=== PATIENT | female | born 1940 | race Caucasian/White ===

== ENCOUNTER 2019-01-09 13:50 | Inpatient (IN) | payer MEDICARE, MEDICAID ==
[~2019-01-09] VITALS: Ht 165.1 cm; Wt 81.6 kg
[~2019-01-09 13:50] MED LIST: ACET-73 PO; ACET325T53 PO; BISA10SU8 RC; CALC-261 PO; CRAN450T3 PO; DEXT1CAP3 PO; DOCU-141 PO; HYDR-3974 PR; LEVO100T9 PO; MAG30ORA PO; MAGN400O6 PO; NA P133E RC; TEMAZEPAM PO
--- NOTE | 2019-01-09 14:30 | NUR ---
[facility] YESTER[facility] UNWITNESSED,-KO. PATIENT A/OX1, CONFYSED, BREATHING EVEN AND UNLABORED, AMBULATES WITH STEADY GAIT. NO DISTRESS NOTED. WILL MONITOR.
[2019-01-09 14:56] LABS: BASOPHILS % (AUTO) 0.5 % (0.0-2.0); EOSINOPHILS % (AUTO) 0.6 % (0.0-6.0); HEMATOCRIT 36 % (33-45); HEMOGLOBIN 12.4 g/dL (11.5-14.8); LYMPHOCYTES # (AUTO) 0.8 /CMM (0.8-4.8); LYMPHOCYTES % (AUTO) 11.8 % (20.0-44.0); MEAN CORPUSCULAR HGB CONC 35 g/dl (31.0-36.0); MEAN CORPUSCULAR VOLUME 91 fL (82-100); MONOCYTES # (AUTO) 0.6 /CMM (0.1-1.30); NEUTROPHILS # (AUTO) 5.2 /CMM (1.8-8.9); NEUTROPHILS % (AUTO) 78.1 % (43.0-81.0); PLATELET COUNT (AUTO) 163 /CMM (150-450); RED BLOOD CELL COUNT(AUTO) 3.96 MIL/uL (4.0-5.2); WHITE BLOOD COUNT (AUTO) 6.6 K/uL (4.3-11.0)
[2019-01-09 15:05] LABS: CALCIUM, SERUM 8.2 mg/dL (8.5-10.1); CARBON DIOXIDE 24 mmol/L (21-32); CHLORIDE 106 mmol/L (98-107); CREATININE 0.7 mg/dL (0.6-1.3); GLUCOSE 196 mg/dL (74-106); POTASSIUM 3.5 mmol/L (3.5-5.1); SODIUM SERUM 142 mmol/L (136-145); UREA NITROGEN, BLOOD 27 mg/dL (7-18)
[2019-01-09 15:08] LABS: ALANINE AMINOTRANSFERASE 13 U/L (12-78); ALBUMIN 3.1 g/dL (3.4-5.0); ALKALINE PHOSPHATASE 62 U/L (46-116); ASPARTATE AMINOTRANSFERASE 7 U/L (15-37); BILIRUBIN,DIRECT 0.1 mg/dL (0.0-0.2); BILIRUBIN,TOTAL 0.5 mg/dL (0.2-1.0); TOTAL PROTEIN, SERUM 6.7 g/dL (6.4-8.2)
[2019-01-09] MEDS ORDERED: DIVA250T4 PO (15:50)
[2019-01-09] MEDS ORDERED: LORA0.5T PO (15:50)
[2019-01-09] MEDS ORDERED: ACET-2605 PO (15:50)
[2019-01-09] MEDS ORDERED: PROP20TA7 PO (15:50)
[2019-01-09] MEDS ORDERED: RISP0.253 PO (15:50)
[2019-01-09] MEDS ORDERED: BENZ0.5T43 PO (15:50)
[2019-01-09] MEDS ORDERED: SIMV10TA6 PO (15:50)
[2019-01-09] MEDS ORDERED: INSULIN REGULAR, HUMAN 100 UNIT/ML 10 ML VIAL ONE (16:17)
[2019-01-09] MEDS ORDERED: INSULIN REGULAR, HUMAN 100 UNIT/ML 10 ML VIAL SQ ONE (16:30)
--- NOTE | 2019-01-09 17:08 | NUR ---
BS RECHECKED 130. MD AWARE WITH NO NEW ORDER.
--- NOTE | 2019-01-09 17:08 | NUR ---
TRAY FOOD ORDERED, ORANGE JUICE PROVIDED. NO S/SX OF HYPOGLYCEMIA.
--- NOTE | 2019-01-09 18:19 | NUR ---
PATIENT A/OX1, VERBALLY RESPONSIVE, ATE REGULAR DINNER 100%, ORANGE JUICE GIVEN, TOLERATED WELL. PATIENT IN NO DISTRESS AT THIS TIME. REPORT GIVEN TO
--- NOTE | 2019-01-09 19:00 | NUR ---
PATIENT TRANSFERRED TO ROOM 307, IN NO DISTRESS.
--- NOTE | 2019-01-09 19:14 | NUR ---
BS IMPROVED, ENDORSED TO DAIN BONILLA TO GIVE PATIENT'S SNACKS LATER.
[2019-01-09] MEDS ORDERED: ACETAMINOPHEN 325 MG TABLET PO PRN (19:30)
[2019-01-09] MEDS ORDERED: ONDANSETRON HCL/PF 4 MG/2 ML VIAL IVP PRN (19:30)
[2019-01-09] MEDS ORDERED: IV NS 0.9% 1,000 ML IV PRN (19:30)
[2019-01-09] MEDS ORDERED: ZOLPIDEM TARTRATE 5 MG TABLET PO PRN (19:30)
[2019-01-09] MEDS ORDERED: Z GUARD REMEDY 2 OZ OINT TP PRN (19:30)
[2019-01-09] MEDS ORDERED: HYDROCODONE/APAP 5/325MG 1 EACH TABLET PO PRN (19:30)
--- NOTE | 2019-01-09 19:30 | NUR ---
RN MS OPENING/ADMISSION NOTES RECEIVED PATIENT IN BED AWAKE, ALERT AND ORIENTED X1-2, FORGETFUL. VERBALLY RESPONSIVE, ABLE TO MAKE NEEDS KNOWN. BREATHING EVEN AND UNLABORED. NO SOB NOTED. TOLERATING ROOM AIR. NO COMPLAINTS OF PAIN OR DISCOMFORT. NO FACIAL GRIMACING. IV ON LEFT HAND INTACT AND PATENT. SKIN DRY AND WARM TO TOUCH. AFEBRILE. ORIENTED TO THE USE OF UNIT AMENITIES. INSTRUCTED ON THE USE OF CALL LIGHT. SAFETY MEASURES IN PLACE. CALL LIGHT WITHIN REACH. WILL CONTINUE TO MONITOR.
[2019-01-09 20:00] VITALS: BP 123/66
[2019-01-09] MEDS: DOCUSATE SODIUM 100 MG CAPSULE PO SCH (20:09)
[2019-01-09] MEDS: DIVALPROEX SODIUM 250 MG TABLET.DR PO SCH (20:09)
[2019-01-09] MEDS: BENZTROPINE MESYLATE (1 MG) 1 MG TABLET PO SCH (20:09)
[2019-01-09] MEDS: PROPRANOLOL HCL 10 MG TABLET PO SCH (20:10)
[2019-01-09] MEDS: ENOXAPARIN SODIUM 40 MG/0.4 ML DISP.SYRIN SQ SCH (20:10)
[2019-01-09] MEDS: risperiDONE 0.25 MG TABLET PO SCH (21:41)
[2019-01-09] MEDS: SIMVASTATIN 10 MG TABLET PO SCH (21:41)
[2019-01-09] MEDS ORDERED: QUETIAPINE FUMARATE 25 MG TABLET PO SCH (23:00)
[2019-01-10] MEDS: PROPRANOLOL HCL 10 MG TABLET PO SCH ×3 (03:46→20:00)
[2019-01-10 06:44] LABS: BASOPHILS % (AUTO) 0.4 % (0.0-2.0); EOSINOPHILS % (AUTO) 1.2 % (0.0-6.0); HEMATOCRIT 35 % (33-45); LYMPHOCYTES # (AUTO) 1.2 /CMM (0.8-4.8); LYMPHOCYTES % (AUTO) 18.5 % (20.0-44.0); MEAN CORPUSCULAR HGB CONC 34 g/dl (31.0-36.0); MEAN CORPUSCULAR VOLUME 91 fL (82-100); MONOCYTES # (AUTO) 0.9 /CMM (0.1-1.30); MONOCYTES % (AUTO) 12.7 % (2.0-12.0); NEUTROPHILS # (AUTO) 4.5 /CMM (1.8-8.9); NEUTROPHILS % (AUTO) 67.2 % (43.0-81.0); PLATELET COUNT (AUTO) 142 /CMM (150-450); RED BLOOD CELL COUNT(AUTO) 3.84 MIL/uL (4.0-5.2); WHITE BLOOD COUNT (AUTO) 6.7 K/uL (4.3-11.0)
[2019-01-10 07:05] LABS: CHOLESTEROL 175 mg/dL (<200); HDL CHOLESTEROL 45 mg/dL (40-60); LDL 118 mg/dL (0-99); TRIGLYCERIDES 81 mg/dL (30-150)
[2019-01-10 07:17] LABS: CALCIUM, SERUM 7.9 mg/dL (8.5-10.1); CARBON DIOXIDE 28 mmol/L (21-32); CHLORIDE 107 mmol/L (98-107); CREATININE 0.5 mg/dL (0.6-1.3); GLUCOSE 92 mg/dL (74-106); MAGNESIUM 2.1 mg/dL (1.8-2.4); PHOSPHORUS 3.4 mg/dL (2.5-4.9); POTASSIUM 3.4 mmol/L (3.5-5.1); SODIUM SERUM 143 mmol/L (136-145); UREA NITROGEN, BLOOD 21 mg/dL (7-18)
--- NOTE | 2019-01-10 07:37 | NUR ---
MS/RN OPENING NOTE PATIENT NOTED SITTING AT EDGE OF BED IN STABLE CONDITION. NO SIGNS OF ACUTE DISTRESS. NO COMPLAIN OF PAIN OR DISCOMFORT. A/O X 1, WITH CONFUSION AND FORGETFULNESS. TRYING TO GET OUT OF BED UNASSISTED. FALL PRECAUTION. WILL MAKE MD AWARE FOR 1:1 SITTER ORDER. WILL CONTINUE TO MONITOR TO ENSURE SAFETY.
[2019-01-10 07:51] LABS: APPEARANCE,URINE CLEAR (CLEAR); BILIRUBIN,URINE NEGATIVE (NEGATIVE); BLOOD, URINE NEGATIVE Ery/uL (NEGATIVE); COLOR,URINE YELLOW (YELLOW); KETONES,URINE NEGATIVE (NEGATIVE); LEUKOCYTE ESTERASE ,URINE NEGATIVE (NEGATIVE); NITRITE, URINE NEGATIVE (NEGATIVE); PH,URINE 7.5 (5.0-8.0); PROTEIN,URINE NEGATIVE (NEGATIVE); UGLUCOSE NEGATIVE (NEGATIVE); UROBILINOGEN,URINE 0.2 EU/dL (0.2)
[2019-01-10 08:00] VITALS: BP 152/81
[2019-01-10] MEDS: risperiDONE 0.25 MG TABLET PO SCH (08:46)
[2019-01-10] MEDS: LEVOTHYROXINE SODIUM 100 MCG TABLET PO SCH (08:46)
[2019-01-10] MEDS: DOCUSATE SODIUM 100 MG CAPSULE PO SCH ×2 (08:46→16:43)
[2019-01-10] MEDS: DIVALPROEX SODIUM 250 MG TABLET.DR PO SCH ×3 (08:46→16:43)
[2019-01-10] MEDS: BENZTROPINE MESYLATE (1 MG) 1 MG TABLET PO SCH ×2 (08:46→16:43)
[2019-01-10] MEDS ORDERED: POTASSIUM CHLORIDE 20 MEQ TAB.PRT.SR PO ONE (09:00)
--- NOTE | 2019-01-10 09:06 | NUR ---
MS/RN SEEN AND EXAMINED BY DR ESQUIVEL AND MADE AWARE PATIENT CONTINUE TO TRY GETTING OUT OF BED UNASSISTED AND STILL NOTED VERY CONFUSE AND FORGETFUL, PER DR ESQUIVEL ORDER 1:1 SITTER AT BEDSIDE, CHARGE NURSE MADE AWARE.
--- NOTE | 2019-01-10 11:00 | NUR ---
MS/RN PATIENT REFUSED IV HYDRATION OFFERED X 3 WITH RISKS AND BENEFITS EXPLAINED CONTINUE TO REFUSE. ENCOURAGE PO FLUIDS. WILL CONTINUE TO MONITOR FOR FURTHER ORDERS.
[2019-01-10] MEDS: risperiDONE 1 MG TABLET PO SCH (13:02)
[2019-01-10 16:00] VITALS: BP 124/68
--- NOTE | 2019-01-10 18:33 | NUR ---
MS/RN CLOSING NOTE PATIENT IN BED IN STABLE CONDITION. A/O X 1, WITH EPISODES OF CONFUSION AND FORGETFULNESS, GETTING OUT OF BED UNASSISTED. NO SIGNS OF ACUTE DISTRESS. NO COMPLAIN OF PAIN OR DISCOMFORT. ALL NEEDS ATTENDED TO AT THIS TIME. CALL LIGHT WITHIN REACH. BED ALARM ON. WILL ENDORSE TO NEXT SHIFT FOR CONTINUITY OF CARE.
--- NOTE | 2019-01-10 19:35 | NUR ---
MSRN FULLY AWAKE, SITTER AT BEDSIDE. PATIENT QUIET, NO VERBAL RESPONSE WHEN ASKED AT THIS TIME. NO NEEDS MADE, CLOSELY WATCHED.
[2019-01-10 20:00] VITALS: BP 111/65
[2019-01-10] MEDS: SIMVASTATIN 10 MG TABLET PO SCH (21:39)
[2019-01-10] MEDS: ENOXAPARIN SODIUM 40 MG/0.4 ML DISP.SYRIN SQ SCH (21:40)
--- NOTE | 2019-01-10 22:00 | NUR ---
MSRN STILL FULLY AWAKE, DUE MEDS ADMINISTERED, NO DIFFICULTY SWALLOWING. SNACKS PROVIDED, ENCOURAGED FLUIDS. CALM, FOLLOWS DIRECTION. HL FOR NOW, REFUSED TO BE CONNECTED TO IVF/
[2019-01-11] MEDS: risperiDONE 1 MG TABLET PO SCH ×2 (00:43→12:16)
--- NOTE | 2019-01-11 00:46 | NUR ---
MSRN FULLY AWAKE, RISPERDAL 1MG PO ADMINISTERED ORDERED.
[2019-01-11 04:30] VITALS: BP 107/51
[2019-01-11] MEDS: PROPRANOLOL HCL 10 MG TABLET PO SCH ×3 (04:30→17:55)
--- NOTE | 2019-01-11 04:30 | NUR ---
MSRN HEART RATE 51, INDERAL HELD PER PARAMETERS. PATIENT SLEEPS ON AND OFF.
--- NOTE | 2019-01-11 06:30 | NUR ---
MSRN RESTING QUIETLY, CALM.
--- NOTE | 2019-01-11 07:50 | NUR ---
ms rn received on bed, awake,alert,oriented x1,not in any form of distress, respirations even and unlabored,no sob noted, patient w/ sitter for safety and comfort, denies pain at this itme. will moniotr patient.
[2019-01-11 08:00] VITALS: BP 115/79
[2019-01-11] MEDS: DOCUSATE SODIUM 100 MG CAPSULE PO SCH ×2 (09:32→17:54)
[2019-01-11] MEDS: BENZTROPINE MESYLATE (1 MG) 1 MG TABLET PO SCH ×2 (09:32→17:54)
[2019-01-11] MEDS: DIVALPROEX SODIUM 250 MG TABLET.DR PO SCH ×3 (09:32→17:54)
[2019-01-11] MEDS: LEVOTHYROXINE SODIUM 100 MCG TABLET PO SCH (09:33)
--- NOTE | 2019-01-11 09:50 | NUR ---
MS BARRON BREAKFAST SERVED,DUE MEDS GIVEN,TOLERATED WELL.
--- NOTE | 2019-01-11 16:18 | NUR ---
MS RN ON BED, NO DISTRESS NOTED.
--- NOTE | 2019-01-11 19:18 | NUR ---
MS RN ON BED, NO DISTRESS NOTED,ALL NEEDS ATTENDED.
--- NOTE | 2019-01-11 19:45 | NUR ---
RN OPENING NOTES RECEIVED REPORT FROM DAYSHIFT RNAKI. FOUND Pt AWAKE, RESTING COMFORTABLY IN BED. WITH SITTER AT BEDSIDE. NO S/S OF ACUTE DISTRESS OR SOB NOTED. Pt IS A/OX1, VERBAL, ABLE TO ANSWER QUESTIONS, BUT IS VERY CONFUSED AND FORGETFUL. IV ACCESS ON RAC #22G, REFUSING IVF. PER REPORT Pt DRINKS FLUIDS FINE. SAFETY MEASURES IN PLACE. BED LOW, LOCKED, HOB ELEVATED, SIDE RAILS UP, & BED ALARM ON. WILL CONTINUE TO MONITOR Pt's CONDITION AND SAFETY THROUGHOUT THE SHIFT.
[2019-01-11 19:57] VITALS: BP 127/67
[2019-01-11] MEDS: SIMVASTATIN 10 MG TABLET PO SCH (22:06)
[2019-01-11] MEDS: ENOXAPARIN SODIUM 40 MG/0.4 ML DISP.SYRIN SQ SCH (22:17)
[2019-01-12] MEDS: risperiDONE 1 MG TABLET PO SCH ×2 (01:21→14:46)
[2019-01-12] MEDS: PROPRANOLOL HCL 10 MG TABLET PO SCH ×2 (03:41→11:30)
--- NOTE | 2019-01-12 06:25 | NUR ---
RN NOTES Pt PULLED ON IV. BLEEDING NOTED FROM SITE. STARTED NEW IV ACCESS ON LAC #22G. REMOVED PREVIOUS IV ON RAC. SECURED WITH GAUZE AND TAPE.
--- NOTE | 2019-01-12 06:45 | NUR ---
RN CLOSING NOTES NO SIGNIFICANT CHANGES IN Pt's CONDITION. Pt REMAINS STABLE AT THIS TIME. NO S/S OF ACUTE DISTRESS OR SOB NOTED DURING THE NIGHT. ALL NEEDS MET AND ATTENDED TO. Pt RESTING IN BED, RESPIRATIONS EVEN AND UNLABORED WITH EQUAL CHEST RISE AND FALL. SAFETY MEASURES IN PLACE. SITTER AT BEDSIDE. WILL ENDORSE TO DAYSHIFT RN FOR Pt's YESSICA.
--- NOTE | 2019-01-12 07:50 | NUR ---
MS RN RECEIVED ON BED, AWAKE,ORIENTED X1,FORGETFUL MOST OF THE TIME,NOT IN ANY FORM OF DISTRESS, RESPIRATIONS EVEN AND UNLABORED, DENIES PAIN AT THIS TIME,W/ SITTER FOR SAFETY AND COMFORT, WILL MONITOR PATIENT.
--- NOTE | 2019-01-12 08:15 | NUR ---
MS BARRON BREAKFAST SERVED,DUE MEDS GIVEN,TOLERATED WELL.
[2019-01-12] MEDS: BENZTROPINE MESYLATE (1 MG) 1 MG TABLET PO SCH (08:24)
[2019-01-12] MEDS: DIVALPROEX SODIUM 250 MG TABLET.DR PO SCH ×2 (08:25→14:46)
[2019-01-12] MEDS: DOCUSATE SODIUM 100 MG CAPSULE PO SCH (08:25)
[2019-01-12] MEDS: LEVOTHYROXINE SODIUM 100 MCG TABLET PO SCH (08:25)
[2019-01-12] MEDS ORDERED: RISP1TAB7 PO (11:16)
[2019-01-12 11:30] VITALS: BP 98/60
--- NOTE | 2019-01-12 12:00 | NUR ---
ms rn patient ready to be transferred to [facility], report given to deshawn vasquez.
--- NOTE | 2019-01-12 15:00 | NUR ---
ms rn patient transferred to snf, no distress noted.
== END 2019-01-12 15:10 | DRG 640 ==
LOC: ER 13:52 → MED 17:20
PROVIDERS: ADMIT Nurse Practitioner Acute Care; ATTEND Student in an Organized Health Care Education/Training Program
DX: E86.0 Dehydration (principal); G93.41 Metabolic encephalopathy; E44.1 Mild protein-calorie malnutrition; D68.59 Other primary thrombophilia; L51.1 Stevens-Johnson syndrome; R73.9 Hyperglycemia, unspecified; I10 Essential (primary) hypertension; G40.909 Epilepsy, unspecified, not intractable, without status epilepticus; E87.6 Hypokalemia; E66.9 Obesity, unspecified; E88.09 Other disorders of plasma-protein metabolism, not elsewhere classified; J39.8 Other specified diseases of upper respiratory tract; Z68.30 Body mass index [BMI] 30.0-30.9, adult; Z91.81 History of falling; F25.9 Schizoaffective disorder, unspecified; E03.9 Hypothyroidism, unspecified
CPT/HCPCS: 36415; 71045-TC; 80048-TC; 80061-TC; 80076-TC; 81000-TC; 82962-TC; 83735-TC; 84100-TC; 84484-TC; 85025-TC; 87081-TC; 87086-TC; G0378; J1650; J1815; J7030

== ENCOUNTER 2020-08-20 17:53 | Inpatient (IN) | payer MEDICARE, OTHER ==
[~2020-08-20] VITALS: Ht 167.6 cm; Wt 73.7 kg
[~2020-08-20 17:53] MED LIST changes: +ACET-2605 PO; -ACET-73 PO; +BENZ0.5T43 PO; -CALC-261 PO; -DEXT1CAP3 PO; +DIVA250T4 PO; -HYDR-3974 PR; +LORA0.5T PO; -MAG30ORA PO; +PROP20TA7 PO; +RISP0.253 PO; +RISP1TAB7 PO; +SIMV10TA98 PO; -TEMAZEPAM PO
[2020-08-20 18:19] LABS: BASOPHILS % (AUTO) 0.4 % (0.0-2.0); EOSINOPHILS % (AUTO) 0.3 % (0.0-6.0); HEMATOCRIT 43 % (33-45); HEMOGLOBIN 14.5 g/dL (11.5-14.8); LYMPHOCYTES # (AUTO) 0.2 /CMM (0.8-4.8); LYMPHOCYTES % (AUTO) 2.7 % (20.0-44.0); MEAN CORPUSCULAR HGB CONC 34 g/dl (31.0-36.0); MEAN CORPUSCULAR VOLUME 92 fL (82-100); MONOCYTES # (AUTO) 0.6 /CMM (0.1-1.30); MONOCYTES % (AUTO) 7.1 % (2.0-12.0); NEUTROPHILS # (AUTO) 8.1 /CMM (1.8-8.9); NEUTROPHILS % (AUTO) 89.5 % (43.0-81.0); PLATELET COUNT (AUTO) 178 /CMM (150-450); WHITE BLOOD COUNT (AUTO) 9.1 K/uL (4.3-11.0)
--- NOTE | 2020-08-20 18:22 | NUR ---
[id number] frm snf for noted fever, tachycardia and hypoxia. On room air 79%, on non rebreather mask @15lpm saturation 95%. connected to the monitor and pulse ox, kept comfortable will continue to monitor accordingly. IV access initiated and blood drawned and sent to lab.
[2020-08-20 18:37] LABS: ALANINE AMINOTRANSFERASE 12 U/L (12-78); ALBUMIN 2.9 g/dL (3.4-5.0); ALKALINE PHOSPHATASE 60 U/L (46-116); ASPARTATE AMINOTRANSFERASE 10 U/L (15-37); BILIRUBIN,DIRECT 0.1 mg/dL (0.0-0.2); BILIRUBIN,TOTAL 0.8 mg/dL (0.2-1.0); CALCIUM, SERUM 8.5 mg/dL (8.5-10.1); CARBON DIOXIDE 28 mmol/L (21-32); CHLORIDE 104 mmol/L (98-107); CREATININE 0.8 mg/dL (0.6-1.3); GLUCOSE 129 mg/dL (74-106); POTASSIUM 3.7 mmol/L (3.5-5.1); SODIUM SERUM 140 mmol/L (136-145); TOTAL PROTEIN, SERUM 6.8 g/dL (6.4-8.2); UREA NITROGEN, BLOOD 14 mg/dL (7-18)
[2020-08-20] MEDS ORDERED: CRAN425C6 PO (18:39)
[2020-08-20] MEDS ORDERED: ACETAMINOPHEN 650 MG/SUPP.RECT RC ONE ×2 (19:00→19:40)
[2020-08-20] MEDS ORDERED: VANCOMYCIN 1 GM in IV D5W 250 ML IV ONE (19:00)
[2020-08-20] MEDS ORDERED: CEFEPIME 1 GM in IV D5W 50 ML IV ONE (19:00)
[2020-08-20] MEDS ORDERED: DEXAMETHASONE SOD PHOSPHATE 10 MG/ML VIAL IV ONE (19:00)
--- NOTE | 2020-08-20 19:17 | NUR ---
rec'd report from pedro valdez for rissa
[2020-08-20 19:29] LABS: D-DIMER 1.76 mg/L(FEU (0.17-0.50)
[2020-08-20] MEDS ORDERED: IV NS 0.9% 1,897.6 ML IV ONE (19:30)
[2020-08-20] MEDS ORDERED: BISACODYL SUPP (10 MG) 10 MG/SUPP.RECT SUPP.RECT RC PRN (19:30)
[2020-08-20] MEDS ORDERED: DEXAMETHASONE SOD PHOSPHATE 10 MG/ML VIAL ONE (19:31)
[2020-08-20] MEDS ORDERED: CEFEPIME 1 GM VIAL ONE (19:31)
[2020-08-20] MEDS ORDERED: VANCOMYCIN 1 GM VIAL ONE (19:32)
--- NOTE | 2020-08-20 19:40 | NUR ---
sent covid pcr and rapid to lab
--- NOTE | 2020-08-20 19:45 | NUR ---
rt at bedside
[2020-08-20 19:47] LABS: C-REACTIVE PROTEIN 0.6 mg/dL (0.0-0.9); CREATINE KINASE, TOTAL 39 U/L (26-192); FERRITIN 306 ng/mL (8-388)
[2020-08-20 20:00] LABS: ABG BASE EXCESS -2.3 mmol/L; ABG OXYGEN SATURATION 99.4 % (92.0-98.5); ABG PCO2 29.2 mmHg (35.0-45.0); ABG PH 7.459 (7.350-7.450); ABG PO2 296.6 mmHg (75.0-100.0); AaDO2 387.2 mmHg; MetHb 0.3 % (0.0-1.5); O2Hb 98.1 % (94.0-97.0); SITE, ABG Left Radial; VENT MODE, BG HFNC 40L 100%
[2020-08-20] MEDS ORDERED: CEFEPIME 1 GM in IV D5W 50 ML IV SCH (20:00)
[2020-08-20] MEDS ORDERED: MAGNESIUM HYDROXIDE 30 ML UDC PO PRN (20:00)
[2020-08-20] MEDS ORDERED: MAG HYDROX/AL HYDROX/SIMETH 30 ML UDC PO PRN (20:00)
[2020-08-20] MEDS ORDERED: Z GUARD REMEDY 2 OZ OINT TP PRN (20:00)
[2020-08-20] MEDS ORDERED: IV 1/2NS 1000 ML 1,000 ML IV PRN (20:00)
[2020-08-20] MEDS ORDERED: ONDANSETRON HCL/PF 4 MG/2 ML VIAL IVP PRN (20:00)
[2020-08-20] MEDS ORDERED: HYDROCODONE/APAP 5/325MG TABLET PO PRN (20:00)
--- NOTE | 2020-08-20 20:03 | NUR ---
pt placed on 6L via NC
[2020-08-20] MEDS ORDERED: ENOXAPARIN SODIUM 40 MG/0.4 ML DISP.SYRIN SQ ONE (20:25)
[2020-08-20] MEDS: ENOXAPARIN SODIUM 40 MG/0.4 ML DISP.SYRIN SQ SCH (20:30)
--- NOTE | 2020-08-20 20:38 | NUR ---
call from lab. Rapid covid negative.
[2020-08-20] MEDS ORDERED: IOHEXOL-350 100 ML VIAL IV ONE (20:45)
[2020-08-20] MEDS ORDERED: IV NS 0.9% 250 ML IV ONE (20:45)
--- NOTE | 2020-08-20 20:47 | NUR ---
rt at bedside
--- NOTE | 2020-08-20 20:59 | NUR ---
returned from ct
[2020-08-20] MEDS: PROPRANOLOL HCL 10 MG TABLET PO SCH (21:00)
[2020-08-20] MEDS ORDERED: risperiDONE 0.25 MG TABLET PO ONE (21:01)
[2020-08-20] MEDS ORDERED: SIMVASTATIN 20 MG TABLET ONE (21:04)
[2020-08-20] MEDS: risperiDONE 0.25 MG TABLET PO SCH (21:05)
--- NOTE | 2020-08-20 21:05 | NUR ---
2100 dose of inderal not given d/t bp 97/71 hr 94
[2020-08-20] MEDS: SIMVASTATIN 10 MG TABLET PO SCH (21:56)
--- NOTE | 2020-08-20 22:17 | NUR ---
US at bedside
--- NOTE | 2020-08-20 23:26 | NUR ---
pt readjusted and made comfortable
--- NOTE | 2020-08-21 04:28 | NUR ---
pt changed and readjusted
[2020-08-21] MEDS: PROPRANOLOL HCL 10 MG TABLET PO SCH ×3 (05:00→20:45)
[2020-08-21 05:05] LABS: BASOPHILS % (AUTO) 0.2 % (0.0-2.0); HEMATOCRIT 42 % (33-45); HEMOGLOBIN 13.9 g/dL (11.5-14.8); LYMPHOCYTES # (AUTO) 0.3 /CMM (0.8-4.8); LYMPHOCYTES % (AUTO) 4.8 % (20.0-44.0); MEAN CORPUSCULAR HGB CONC 33 g/dl (31.0-36.0); MEAN CORPUSCULAR VOLUME 91 fL (82-100); MONOCYTES % (AUTO) 14.2 % (2.0-12.0); NEUTROPHILS # (AUTO) 5.7 /CMM (1.8-8.9); NEUTROPHILS % (AUTO) 80.8 % (43.0-81.0); PLATELET COUNT (AUTO) 151 /CMM (150-450); RED BLOOD CELL COUNT(AUTO) 4.56 MIL/uL (4.0-5.2); WHITE BLOOD COUNT (AUTO) 7.1 K/uL (4.3-11.0)
--- NOTE | 2020-08-21 05:14 | NUR ---
0500 dose of inderal held d/t bp 100/62 and hr 59
[2020-08-21 05:28] LABS: ALBUMIN 2.7 g/dL (3.4-5.0); BILIRUBIN,TOTAL 0.8 mg/dL (0.2-1.0); CALCIUM, SERUM 8.3 mg/dL (8.5-10.1); CREATININE 0.7 mg/dL (0.6-1.3); MAGNESIUM 2.3 mg/dL (1.8-2.4); PHOSPHORUS 4.3 mg/dL (2.5-4.9); TOTAL PROTEIN, SERUM 6.6 g/dL (6.4-8.2)
[2020-08-21 05:40] LABS: THYROID STIMULATING HORMONE 0.513 uIU/mL (0.358-3.74)
[2020-08-21] MEDS: LEVOTHYROXINE SODIUM 100 MCG TABLET PO SCH (07:30)
--- NOTE | 2020-08-21 07:36 | NUR ---
gave report to ANDERSON Gamino for rissa
--- NOTE | 2020-08-21 08:00 | NUR ---
PATIENT SEEN AND EVALUATED BY DR. CHAVEZ, STILL ON A.FLUTTER ON THE MONITOR. PATIENT APPEARS COMFORTABLE.
[2020-08-21] MEDS: DIVALPROEX SODIUM 250 MG TABLET.DR PO SCH ×3 (09:00→18:11)
[2020-08-21] MEDS: ENOXAPARIN SODIUM 40 MG/0.4 ML DISP.SYRIN SQ SCH (09:00)
[2020-08-21] MEDS: DEXAMETHASONE SOD PHOSPHATE 10 MG/ML VIAL IV SCH (09:00)
[2020-08-21] MEDS: risperiDONE 0.25 MG TABLET PO SCH ×2 (09:00→20:45)
[2020-08-21] MEDS: BENZTROPINE MESYLATE (1 MG) 1 MG TABLET PO SCH ×2 (09:00→18:11)
[2020-08-21] MEDS ORDERED: Medication Not On Formulary EA (Cranberry Extract (Cranberry) 850 MG) PO SCH (09:00)
[2020-08-21] MEDS: CEFEPIME 2 GM in IV D5W 100 ML IV SCH ×2 (09:30→20:30)
[2020-08-21] MEDS ORDERED: LEVOTHYROXINE SODIUM 50 MCG TABLET ONE (09:48)
[2020-08-21] MEDS ORDERED: BENZTROPINE MESYLATE (1 MG) 1 MG TABLET ONE ×2 (09:52→18:08)
[2020-08-21] MEDS ORDERED: ENOXAPARIN SODIUM 40 MG/0.4 ML DISP.SYRIN SQ ONE (09:52)
[2020-08-21] MEDS ORDERED: VANCOMYCIN 1 GM VIAL ONE (09:53)
[2020-08-21] MEDS ORDERED: DIVALPROEX SODIUM 250 MG TABLET.DR PO ONE ×3 (09:54→18:08)
[2020-08-21] MEDS ORDERED: risperiDONE 1 MG TABLET ONE (09:54)
[2020-08-21] MEDS: VANCOMYCIN HCL 0.75 GM in IV D5W 250 ML IV SCH ×2 (10:00→21:00)
[2020-08-21] MEDS ORDERED: AMIODARONE 150 MG in IV D5W 100 ML IV ONE (13:00)
[2020-08-21] MEDS ORDERED: AMIODARONE 450 MG in IV D5W 250 ML IV PRN (13:00)
[2020-08-21] MEDS: AMIODARONE 450 MG in IV D5W 250 ML IV PRN ×2 (14:04→21:15)
[2020-08-21] MEDS ORDERED: APIXABAN 5 MG TABLET ONE ×2 (14:56→20:39)
[2020-08-21] MEDS: APIXABAN 5 MG TABLET PO SCH ×2 (15:06→20:45)
[2020-08-21] MEDS ORDERED: DOCUSATE SODIUM 100 MG CAPSULE PO ONE (18:08)
[2020-08-21] MEDS: DOCUSATE SODIUM 100 MG CAPSULE PO SCH (18:11)
[2020-08-21 18:30] LABS: BILIRUBIN,URINE NEGATIVE (NEGATIVE); COLOR,URINE YELLOW (YELLOW); LEUKOCYTE ESTERASE ,URINE NEGATIVE (NEGATIVE); NITRITE, URINE NEGATIVE (NEGATIVE); PROTEIN,URINE NEGATIVE (NEGATIVE); UGLUCOSE NEGATIVE (NEGATIVE); UROBILINOGEN,URINE 0.2 EU/dL (0.2)
--- NOTE | 2020-08-21 19:15 | NUR ---
rec'd report from ANDERSON Vizcarra for rissa
[2020-08-21] MEDS ORDERED: risperiDONE 0.25 MG TABLET PO ONE (20:39)
[2020-08-21] MEDS: SIMVASTATIN 10 MG TABLET PO SCH (22:00)
--- NOTE | 2020-08-22 03:43 | NUR ---
lab at bedside
[2020-08-22 04:31] LABS: BASOPHILS % (AUTO) 0.1 % (0.0-2.0); HEMATOCRIT 37 % (33-45); HEMOGLOBIN 12.7 g/dL (11.5-14.8); LYMPHOCYTES # (AUTO) 0.2 /CMM (0.8-4.8); MEAN CORPUSCULAR HGB CONC 34 g/dl (31.0-36.0); MEAN CORPUSCULAR VOLUME 89 fL (82-100); MONOCYTES # (AUTO) 0.8 /CMM (0.1-1.30); MONOCYTES % (AUTO) 9.7 % (2.0-12.0); NEUTROPHILS # (AUTO) 7.1 /CMM (1.8-8.9); NEUTROPHILS % (AUTO) 87.2 % (43.0-81.0); PLATELET COUNT (AUTO) 161 /CMM (150-450); RED BLOOD CELL COUNT(AUTO) 4.17 MIL/uL (4.0-5.2); WHITE BLOOD COUNT (AUTO) 8.1 K/uL (4.3-11.0)
[2020-08-22 04:55] LABS: CALCIUM, SERUM 8.3 mg/dL (8.5-10.1); CREATININE 0.8 mg/dL (0.6-1.3); PHOSPHORUS 3.9 mg/dL (2.5-4.9); POTASSIUM 3.4 mmol/L (3.5-5.1)
[2020-08-22] MEDS: PROPRANOLOL HCL 10 MG TABLET PO SCH ×3 (05:00→21:35)
--- NOTE | 2020-08-22 05:26 | NUR ---
non admin inderal. pt NSR bradycardia 59HR BP128/66. Held per EYE DROPPER ASSEMBLER Agustin
--- NOTE | 2020-08-22 06:15 | NUR ---
pt changed, cleaned, and repositioned
--- NOTE | 2020-08-22 07:20 | NUR ---
gave report to ANDERSON Charles for rissa
--- NOTE | 2020-08-22 07:29 | NUR ---
PT IN BED. AWAKE, ALERT BUT CONFUSED. ON 02 @ 4LPM VIA NC SATTING @ 93%. ON AMIODORONE DRIP.
[2020-08-22] MEDS ORDERED: POTASSIUM CHLORIDE 20 MEQ TAB.PRT.SR PO ONE (08:00)
[2020-08-22] MEDS: CEFEPIME 2 GM in IV D5W 100 ML IV SCH (08:25)
[2020-08-22] MEDS: LEVOTHYROXINE SODIUM 100 MCG TABLET PO SCH (08:25)
[2020-08-22] MEDS: DEXAMETHASONE SOD PHOSPHATE 10 MG/ML VIAL IV SCH (08:32)
[2020-08-22] MEDS ORDERED: risperiDONE 0.25 MG TABLET PO ONE ×2 (08:48→21:32)
[2020-08-22] MEDS ORDERED: DEXAMETHASONE SOD PHOSPHATE 10 MG/ML VIAL ONE (08:48)
[2020-08-22] MEDS ORDERED: APIXABAN 5 MG TABLET ONE ×2 (08:48→21:31)
--- NOTE | 2020-08-22 08:51 | NUR ---
DR. PEREZ AT BEDSIDE
[2020-08-22] MEDS: BENZTROPINE MESYLATE (1 MG) 1 MG TABLET PO SCH ×2 (09:09→19:00)
[2020-08-22] MEDS: VANCOMYCIN HCL 0.75 GM in IV D5W 250 ML IV SCH (09:09)
[2020-08-22] MEDS: DIVALPROEX SODIUM 250 MG TABLET.DR PO SCH ×3 (09:09→19:00)
[2020-08-22] MEDS: APIXABAN 5 MG TABLET PO SCH ×2 (09:09→21:35)
[2020-08-22] MEDS: risperiDONE 0.25 MG TABLET PO SCH ×2 (09:09→21:35)
--- NOTE | 2020-08-22 10:21 | NUR ---
PT V/S ARE STABLE, O2 SAT 95%, PLACED ON 6 L VIA NS. WILL CONTINUE MONITOR ACCORDINGLY MEDICATIONS GIVEN ORDERED
--- NOTE | 2020-08-22 12:44 | NUR ---
PATIENT ATE 65% OF THE MEAL, V/S STABLE. CLEANED AND CHANGED
[2020-08-22] MEDS ORDERED: DIVALPROEX SODIUM 250 MG TABLET.DR PO ONE ×2 (14:11→19:29)
[2020-08-22] MEDS ORDERED: PROPRANOLOL HCL 10 MG TABLET ONE ×2 (14:12→21:32)
--- NOTE | 2020-08-22 15:57 | NUR ---
PATIENT COMFORTABLE AND SLEEPING V/S WITHIN NORMAL RANGE
[2020-08-22] MEDS: DOCUSATE SODIUM 100 MG CAPSULE PO SCH (19:00)
[2020-08-22] MEDS ORDERED: BENZTROPINE MESYLATE (1 MG) 1 MG TABLET ONE (19:27)
[2020-08-22] MEDS ORDERED: DOCUSATE SODIUM 100 MG CAPSULE PO ONE (19:28)
[2020-08-22] MEDS ORDERED: SIMVASTATIN 10 MG TABLET ONE (21:32)
[2020-08-22] MEDS: SIMVASTATIN 10 MG TABLET PO SCH (21:35)
[2020-08-23 04:53] LABS: BASOPHILS % (AUTO) 0.5 % (0.0-2.0); EOSINOPHILS % (AUTO) 0.1 % (0.0-6.0); HEMATOCRIT 39 % (33-45); HEMOGLOBIN 13.1 g/dL (11.5-14.8); LYMPHOCYTES # (AUTO) 0.5 /CMM (0.8-4.8); LYMPHOCYTES % (AUTO) 8.5 % (20.0-44.0); MEAN CORPUSCULAR HGB CONC 34 g/dl (31.0-36.0); MEAN CORPUSCULAR VOLUME 90 fL (82-100); MONOCYTES # (AUTO) 0.7 /CMM (0.1-1.30); MONOCYTES % (AUTO) 12.2 % (2.0-12.0); NEUTROPHILS # (AUTO) 4.7 /CMM (1.8-8.9); NEUTROPHILS % (AUTO) 78.7 % (43.0-81.0); PLATELET COUNT (AUTO) 152 /CMM (150-450); WHITE BLOOD COUNT (AUTO) 5.9 K/uL (4.3-11.0)
[2020-08-23 04:57] LABS: CALCIUM, SERUM 8.2 mg/dL (8.5-10.1); CREATININE 0.8 mg/dL (0.6-1.3); POTASSIUM 3.6 mmol/L (3.5-5.1)
[2020-08-23] MEDS: PROPRANOLOL HCL 10 MG TABLET PO SCH ×3 (05:00→21:18)
--- NOTE | 2020-08-23 05:50 | NUR ---
held propanolol, pt hr <50
[2020-08-23 06:40] VITALS: BP 148/92
--- NOTE | 2020-08-23 06:50 | NUR ---
PT TRANSFERRED PER ACLS PROTOCOL.
--- NOTE | 2020-08-23 07:02 | NUR ---
RN OPENING NOTE RECEIVED PT AWAKE IN BED AT THIS TIME. PT AOX1. NO SOB NOTED, NO S/S OF ANY ACUTE DISTRESS NOTED, NO S/O PAIN AT THIS TIME. NO FACIAL GRIMACE NOTED. PT NOTED ON OXYGEN 6LPM VIA NC SATURATING AT 97%. PT ON EXTERNAL TELE MACHINE PRINTER READING SR 70. IV ACCESS NOTED IN LAC G#22, INTACT, PATENT AND FLUSHING WELL. ASPIRATIONS AND SAFETY PRECAUTIONS IN PLACE AND MAINTAINED AT ALL TIMES. BED IN LOWEST LOCKED POSITION, SIDE RAILS UP, HOB ELEVATED, TABLE AND CALL LIGHT WITHIN REACH. WILL CONTINUE TO MONITOR.
[2020-08-23 08:00] VITALS: BP 117/70
[2020-08-23] MEDS: risperiDONE 0.25 MG TABLET PO SCH ×2 (08:33→21:17)
[2020-08-23] MEDS: DIVALPROEX SODIUM 250 MG TABLET.DR PO SCH ×3 (08:33→17:42)
[2020-08-23] MEDS: LEVOTHYROXINE SODIUM 100 MCG TABLET PO SCH (08:33)
[2020-08-23] MEDS: BENZTROPINE MESYLATE (1 MG) 1 MG TABLET PO SCH ×2 (08:34→17:42)
[2020-08-23] MEDS: DEXAMETHASONE SOD PHOSPHATE 10 MG/ML VIAL IV SCH (08:35)
[2020-08-23] MEDS: APIXABAN 5 MG TABLET PO SCH ×2 (08:35→21:19)
[2020-08-23 12:00] VITALS: BP 127/84
--- NOTE | 2020-08-23 13:30 | NUR ---
PT HAS AMIODARONE IV TITR PRN, PHARMACY REQUESTED TO CLARIFY TO CONTINUE OR DISCONTINUE. UNABLE TO REACH DR PEREZ VIA TELEPHONE EXCHANGE. DR CHAVEZ MADE AWARE. PER DR CHAVEZ, DISCONTINUE AMIODARONE. ORDERS CARRIED OUT. WILL CONTINUE WITH PLAN OF CARE
[2020-08-23 16:00] VITALS: BP 144/88
[2020-08-23] MEDS: DOCUSATE SODIUM 100 MG CAPSULE PO SCH (17:42)
[2020-08-23] MEDS: MORPHINE SULFATE INJ 2 MG/ML DISP.SYRIN IV PRN ×2 (18:41→23:54)
--- NOTE | 2020-08-23 18:42 | NUR ---
PT NOTED WITH FACIAL GRIMACE, MOANING, RESTLESS, IRRITABLE. VS WNL. MORPHINE 2MG IV Q4H PRN ADMINISTERED AT THIS TIME. WILL CONTINUE TO MONITOR
--- NOTE | 2020-08-23 19:02 | NUR ---
RN CLOSING NOTES PT AWAKE IN BED AT THIS TIME. PT REMAINED STABLE THROUGHOUT SHIFT. ALL CARE, NEED, MEDICATIONS AND TREATMENT ADMINISTERED ANTICIPATED PER ORDER. PT REPOSITIONED Q2HR AND PRN. PT KEPT CLEAN AND DRY. SAFETY PRECAUTION IN PLACE AND MAINTAINED AT ALL TIMES. BED IN LOWEST LOCKED POSITION, HOB ELEVATED, SIDE RAILS UP X 2, CALL LIGHT AND TABLE WITHIN REACH. ENDORSED TO EDUCATIONAL PROGRAM ASSISTANT NURSE FOR YESSICA
--- NOTE | 2020-08-23 19:30 | NUR ---
TELE/RN OPENING NOTES RECEIVED PATIENT IN BED RESTING. PATIENT IS ALERT AND ORIENTED X 1. PATIENTS BREATHING IS EVEN AND UNLABORED. PATIENT IN NO SIGNS OF RESPIRATORY DISTRESS. PATIENT SHOWS NO SIGNS OF PAIN AT THIS TIME. TELE READING NSR. PATIENT HAS IV ACCESS ON LAC #22G FLUSHING WELL. SAFETY MEASURES ARE IN PLACE, BED IS LOCK AND PLACED IN THE LOWEST POSITION, SIDE RAILS UP X 3, CALL LIGHT IS WITHIN REACH. WILL CONTINUE TO MONITOR THROUGH OUT SHIFT.
[2020-08-23 20:00] VITALS: BP 115/92
[2020-08-23] MEDS: SIMVASTATIN 10 MG TABLET PO SCH (21:18)
[2020-08-24] VITALS: BP 112/47
--- NOTE | 2020-08-24 | NUR ---
TELE/RN NOTES PATIENT SHOWING SIGNS OF DISCOMFORT AND FACIAL GRIMACING. PATIENT GIVEN MORPHINE 2 MG IV. PATIENT IS STABLE AT THIS TIME. WILL CONTINUE TO MONITOR.
[2020-08-24 04:00] VITALS: BP 130/61
[2020-08-24] MEDS: PROPRANOLOL HCL 10 MG TABLET PO SCH ×3 (05:09→21:08)
--- NOTE | 2020-08-24 06:30 | NUR ---
TELE/RN CLOSING NOTES PATIENT IN BED RESTING. PATIENT IS ALERT AND ORIENTED X 1. PATIENTS BREATHING IS EVEN AND UNLABORED. PATIENT IN NO SIGNS OF RESPIRATORY DISTRESS. TELE READING NSR. PATIENT HAS IV ACCESS ON LAC #22G FLUSHING WELL. PO INTAKE ENCOURAGED DURING SHIFT, PATIENT TOLERATED PO INTAKE WELL. ALL PATIENTS NEEDS MET DURING SHIFT. SAFETY MEASURES ARE IN PLACE, BED IS LOCK AND PLACED IN THE LOWEST POSITION, SIDE RAILS UP X 3, CALL LIGHT IS WITHIN REACH. WILL ENDORSE CARE TO DAY SHIFT NURSE.
[2020-08-24 07:29] LABS: CALCIUM, SERUM 8.2 mg/dL (8.5-10.1); CREATININE 0.7 mg/dL (0.6-1.3); POTASSIUM 3.3 mmol/L (3.5-5.1)
--- NOTE | 2020-08-24 07:48 | NUR ---
MANAGER FIRE NOTE PATIENT IN BED RESTING COMFORTABLY. PATIENT IN NO ACUTE DISTRESS. NO SOB NOTED. PATIENT BREATHING IS EVEN AND UNLABORED. PATIENT HOB IS ELEVATED. SAFETY PRECAUTIONS IN PLACE. PATIENT BED IS LOCKED AND IN LOWEST POSITION. CALL LIGHT WITHIN REACH. WILL CONTINUE TO MONITOR.
[2020-08-24 08:00] VITALS: BP 97/64
[2020-08-24] MEDS: APIXABAN 5 MG TABLET PO SCH ×2 (08:19→21:08)
[2020-08-24] MEDS: DEXAMETHASONE SOD PHOSPHATE 10 MG/ML VIAL IV SCH (08:20)
[2020-08-24] MEDS: LEVOTHYROXINE SODIUM 100 MCG TABLET PO SCH (08:20)
[2020-08-24] MEDS: BENZTROPINE MESYLATE (1 MG) 1 MG TABLET PO SCH ×2 (08:20→16:06)
[2020-08-24] MEDS: DIVALPROEX SODIUM 250 MG TABLET.DR PO SCH ×3 (08:20→16:06)
[2020-08-24] MEDS: risperiDONE 0.25 MG TABLET PO SCH ×2 (08:20→21:07)
--- NOTE | 2020-08-24 09:36 | NUR ---
NEUROPATHOLOGIST NOTE INFORMED DR. PEREZ THAT PATIENT HAS NOT RECEIVED AMIODARONE DRIP MEDICATION FOR 2 DAYS. INFORMED HIM PATIENT SINUS BRADYCARDIA HR 58. PER DR. PEREZ DISCONTINUE MEDICATION.
[2020-08-24] MEDS ORDERED: POTASSIUM CHLORIDE 20 MEQ TAB.PRT.SR PO SCH (10:30)
[2020-08-24 12:00] VITALS: BP 90/71
[2020-08-24 16:00] VITALS: BP 140/57
[2020-08-24] MEDS: DOCUSATE SODIUM 100 MG CAPSULE PO SCH (17:02)
--- NOTE | 2020-08-24 18:49 | NUR ---
HEAVY EQUIPMENT OPERATOR NOTE PATIENT IN BED RESTING COMFORTABLY. PATIENT IN NO ACUTE DISTRESS. NO SOB NOTED. PATIENT BREATHING IS EVEN AND UNLABORED. PATIENT HOB IS ELEVATED. PATIENT ON CARDIAC MONITORING READING SINUS RHYTHM HR 60. SAFETY PRECAUTIONS IN PLACE. PATIENT KEPT CLEAN, DRY, AND COMFORTABLE THROUGHOUT MY SHIFT. PATIENT BED IS LOCKED AND IN LOWEST POSITION. CALL LIGHT WITHIN REACH. WILL ENDORSE CARE TO PM SHIFT FOR YESSICA.
--- NOTE | 2020-08-24 19:30 | NUR ---
TELE/RN OPENING NOTES RECEIVED PATIENT IN BED SLEEPING EASY TO AROUSE. PATIENT IS ALERT AND ORIENTED X 1. PATIENTS BREATHING IS EVEN AND UNLABORED. PATIENT IN NO SIGNS OF RESPIRATORY DISTRESS. PATIENT SHOWS NO SIGNS OF PAIN AT THIS TIME. TELE READING NSR. PATIENT HAS IV ACCESS ON LAC #22G FLUSHING WELL INTACT. SAFETY MEASURES ARE IN PLACE, BED IS LOCK AND PLACED IN THE LOWEST POSITION, SIDE RAILS UP X 3, CALL LIGHT IS WITHIN REACH. WILL CONTINUE TO MONITOR THROUGH OUT SHIFT.
[2020-08-24 20:00] VITALS: BP 127/64
[2020-08-24] MEDS: SIMVASTATIN 10 MG TABLET PO SCH (21:07)
[2020-08-25] VITALS (9 sets, daily range): BP systolic 18–157; BP diastolic 46–89
[2020-08-25] MEDS: PROPRANOLOL HCL 10 MG TABLET PO SCH ×3 (05:16→23:34)
--- NOTE | 2020-08-25 06:25 | NUR ---
TELE/RN CLOSING NOTES PATIENT IN BED RESTING. PATIENT IS ALERT AND ORIENTED X 1. PATIENTS BREATHING IS EVEN AND UNLABORED. PATIENT IN NO SIGNS OF RESPIRATORY DISTRESS. PATIENT SHOWS NO SIGNS OF PAIN AT THIS TIME. TELE READING SR WITH FIRST DEGREE BLOCK. PATIENT HAS IV ACCESS ON LAC #22G FLUSHING WELL INTACT. PATIENT TOLERATED SNACKS AND FLUSHES DURING SHIFT. ALL PATIENTS NEEDS HAVE BEEN MET. SAFETY MEASURES ARE IN PLACE, BED IS LOCK AND PLACED IN THE LOWEST POSITION, SIDE RAILS UP X 3, CALL LIGHT IS WITHIN REACH. WILL ENDORSE CARE TO DAY SHIFT NURSE.
[2020-08-25 07:19] LABS: CALCIUM, SERUM 8.1 mg/dL (8.5-10.1); CREATININE 0.7 mg/dL (0.6-1.3); POTASSIUM 3.8 mmol/L (3.5-5.1)
--- NOTE | 2020-08-25 07:35 | NUR ---
TRIMMER MEAT NOTE PATIENT IN BED RESTING COMFORTABLY. PATIENT IN NO ACUTE DISTRESS. NO SOB NOTED. PATIENT BREATHING IS EVEN AND UNLABORED. PATIENT HOB IS ELEVATED. SAFETY PRECAUTIONS IN PLACE. PATIENT BED IS LOCKED AND IN LOWEST POSITION. CALL LIGHT WITHIN REACH. WILL CONTINUE TO MONITOR.
[2020-08-25] MEDS: risperiDONE 0.25 MG TABLET PO SCH ×2 (08:26→23:31)
[2020-08-25] MEDS: DIVALPROEX SODIUM 250 MG TABLET.DR PO SCH ×3 (08:26→16:47)
[2020-08-25] MEDS: BENZTROPINE MESYLATE (1 MG) 1 MG TABLET PO SCH ×2 (08:26→16:47)
[2020-08-25] MEDS: LEVOTHYROXINE SODIUM 100 MCG TABLET PO SCH (08:26)
[2020-08-25] MEDS: APIXABAN 5 MG TABLET PO SCH ×2 (08:26→23:30)
[2020-08-25] MEDS: DEXAMETHASONE SOD PHOSPHATE 10 MG/ML VIAL IV SCH (08:27)
[2020-08-25] MEDS ORDERED: APIX5TAB PO (10:19)
[2020-08-25] MEDS ORDERED: METH4TAB3 PO (10:19)
--- NOTE | 2020-08-25 13:14 | NUR ---
NEON INSTALLER NOTE PATIENT MEDICALLY STABLE FOR DISCHARGE. PATIENT IN NO ACUTE DISTRESS. NO SOB NOTED. PATIENT BREATHING IS EVEN AND UNLABORED. DC INSTRUCTIONS PROVIDED, PATIENT UNABLE TO COMPREHEND. DC PAPERWORK AND BELONGINGS SIGNED OFF BY TWO NURSES. INFORMED DAUGHTER PATIENT GOING BACK TO SNF AND MADE AWARE. PATIENT ID BAND REMOVED. PATIENT IV REMOVED. PATIENT SKIN ASSESSED, NO NEW SKIN BREAKDOWN NOTED. PATIENT KEPT CLEAN, DRY, AND COMFORTABLE THROUGHOUT SHIFT. REPORT GIV[facility] TO AN[facility]IN [facility]ON AT [facility]. PATIENT GOING WITH 2 COMBINATION OPERATOR BACK TO SNF BY AMBULANCE. MD AWARE OF DISCHARGE.
--- NOTE | 2020-08-25 14:30 | NUR ---
PROGRAM MANAGER ENVIRONMENTAL PLANNING NOTE PATIENT [facility] LOW BP AND LOW O2 SATURATION. PATIENT WAS ON 3-4L OXYGEN SATURATING 93% SPO2 BEFORE DISCHARGE. PATIENT ARRIVED BACK TO ROOM WITH NONREBREATHER 15L SATURATING 93% SPO2. INFORMED DR. CHAVEZ OF PATIENT OCCURRENCE WITH SNF. ORDER FOR REINSTATE TO HOSPITAL WITH SAME ORDERS PER DR. CHAVEZ. AND INFORMED DR. CHAVEZ OF PATIENT CURRENT SET OF VITALS AND SATURATION. NO NEW ORDERS AT THIS TIME. INFORMED DR. KHAN OF CURRENT O2 STATUS OF 15L NONREBREATHER SATURATING 93% SPO2 AND PREVIOUS PATIENT OCCURRENCE WITH SNF. MADE AWARE, NO NEW ORDERS AT THIS FROM DR. KHAN. CHARGE NURSE TODD MADE AWARE. WIND TURBINE SHEET METAL WORKER FARA TOVAR.
--- NOTE | 2020-08-25 15:15 | NUR ---
SMALL ENGINE TECHNICIAN NOTE PATIENT RESTING IN BED. PATIENT IN NO ACUTE DISTRESS. INFORMED DAUGHTER OF PATIENT OCCURRENCE WITH SNF. DAUGHTER AWARE OF PLAN OF CARE. PATIENT BED IS LOCKED AND IN LOWEST POSITION. CALL LIGHT WITHIN REACH. WILL CONTINUE TO MONITOR.
[2020-08-25] MEDS: DOCUSATE SODIUM 100 MG CAPSULE PO SCH (17:07)
--- NOTE | 2020-08-25 18:46 | NUR ---
DRIVER LICENSE AGENT NOTE PATIENT IN BED RESTING COMFORTABLY. PATIENT IN NO ACUTE DISTRESS. NO SOB NOTED. PATIENT BREATHING IS EVEN AND UNLABORED. PATIENT ON SIMPLE MASK 5L SATURATING 94% SPO2. PATIENT HOB IS ELEVATED. PATIENT ON CARDIAC MONITORING READING SINUS BRADYCARDIA HR 58. SAFETY PRECAUTIONS IN PLACE. PATIENT KEPT CLEAN, DRY, AND COMFORTABLE THROUGHOUT MY SHIFT. PATIENT BED IS LOCKED AND IN LOWEST POSITION. CALL LIGHT WITHIN REACH. WILL ENDORSE CARE TO PM SHIFT FOR YESSICA.
[2020-08-25] MEDS: SIMVASTATIN 10 MG TABLET PO SCH (23:31)
[2020-08-26 00:42] VITALS: BP 145/59
[2020-08-26 04:20] VITALS: BP_SYST 145; BP_SYST 96; BP_DIAS 53; BP_DIAS 59
[2020-08-26] MEDS: PROPRANOLOL HCL 10 MG TABLET PO SCH ×3 (05:00→20:30)
[2020-08-26] MEDS: ACETAMINOPHEN 325 MG TABLET PO PRN ×2 (06:09→20:35)
[2020-08-26] MEDS: LEVOTHYROXINE SODIUM 100 MCG TABLET PO SCH ×2 (06:09→08:12)
--- NOTE | 2020-08-26 06:10 | NUR ---
TYELENOL GIVEN; PT HAS TEMP OF 100.5 WARM TO TOUCH. TYLENOL ADMINISTERED ORDERED PER PATIENT REQUEST.
--- NOTE | 2020-08-26 06:58 | NUR ---
TORPEDO SPECIALIST NOTE PATIENT IN BED RESTING. PT BREATHING IS EVEN AND UNLABORED. PT MEDICATED FOR TYELENOL FOR TEMP THIS AM. PATIENT BREATHING IS EVEN AND UNLABORED. PATIENT STILL ON SIMPLE MASK 5L SATURATING 91-94%% SPO2. PATIENT HOB IS ELEVATED. PATIENT ON CARDIAC MONITORING READING SR. SAFETY PRECAUTIONS IN PLACE. PATIENT KEPT CLEAN, DRY, BED LOCKED AND IN LOWEST POSITION. CALL LIGHT AVAILBABLE WITHIN REACH. WILL ENDORSE CARE TO AM SHIFT FOR YESSICA.
--- NOTE | 2020-08-26 07:34 | NUR ---
TELE/RN OPENING NOTE RECEIVED PATIENT ON BED AWAKE, ALERT AND ORIENTED X3. PATIENT IS ON 6L OXYGEN VIA SIMPLE MASK SATURATION 92%. PATIENT IN NO APPARENT RESPIRATORY DISTRESS NOTED. NO SIGN AND SYMPTOM OF PAIN NOTED AT THIS TIME. TELE MONITOR READING SINUS RHYTHM 68 BPM. WILL CONTINUE TO MONITOR.
[2020-08-26 08:00] VITALS: BP 93/35
[2020-08-26] MEDS: DEXAMETHASONE SOD PHOSPHATE 10 MG/ML VIAL IV SCH (08:10)
[2020-08-26] MEDS: DIVALPROEX SODIUM 250 MG TABLET.DR PO SCH ×3 (08:10→16:26)
[2020-08-26] MEDS: BENZTROPINE MESYLATE (1 MG) 1 MG TABLET PO SCH ×2 (08:10→16:26)
[2020-08-26] MEDS: risperiDONE 0.25 MG TABLET PO SCH ×2 (08:12→20:30)
[2020-08-26] MEDS: APIXABAN 5 MG TABLET PO SCH ×2 (08:12→20:31)
[2020-08-26 12:00] VITALS: BP 96/42
--- NOTE | 2020-08-26 13:17 | NUR ---
TELE/RN NOTES BP 96/42 P 52 [id number] 10MG 1 TAB P.O. WAS WITH HELD. WILL CONTINUE TO MONITOR.
[2020-08-26 16:00] VITALS: BP 123/59
[2020-08-26 16:25] LABS: C-REACTIVE PROTEIN 4.7 mg/dL (0.0-0.9)
[2020-08-26] MEDS: DOCUSATE SODIUM 100 MG CAPSULE PO SCH (17:14)
--- NOTE | 2020-08-26 18:52 | NUR ---
TELE/RN OPENING NOTE PATIENT ON BED. PATIENT IS ON 6L OXYGEN VIA SIMPLE MASK SATURATION 93%. PATIENT IN NO APPARENT RESPIRATORY DISTRESS NOTED. NO SIGN AND SYMPTOM OF PAIN NOTED AT THIS TIME. TELE MONITOR READING SINUS RHYTHM 62 BPM WITH 1ST DEGREE. SEEN AND EXAMINED BY MD WITH ORDERS MADE AND CARRIED OUT. ALL DUE MEDICATIONS WAS GIVEN. SAFETY PRECAUTIONS WAS IN PLACED. BED IN LOWEST POSITION AND LOCKED. SIDE RAILS UP X2 AND LOCKED. CALL LIGHT WITHIN REACH.WILL ENDORSED TO ASSOCIATE PROFESSOR OF LAW FOR
--- NOTE | 2020-08-26 19:35 | NUR ---
DEHYDRATOR TENDER OPENING NOTE, PATIENT IN BED, ASLEEP, ON 6L OXYGEN VIA SIMPLE MASK SATURATION 96%, NO S/S OF SOB/ACUTE DISTRESS NOTED, AT THIS TIME, SINUS RHYTHM IN TELE MONITOR, PIV LINE RIGHT WRIST 20GHR PATENT AND INTACT, IN LOW 60S AT THIS TIME, SAFETY PRECAUTIONS WAS IN PLACED, BED LOCKED AND LOWEST POSITION, SIDE RAILS UP X2, CALL LIGHT WITHIN REACH, WILL CONTINUE TO MONITOR CLOSELY.
[2020-08-26 20:00] VITALS: BP 140/95
[2020-08-26] MEDS: SIMVASTATIN 10 MG TABLET PO SCH (22:05)
[2020-08-26] MEDS: CEFEPIME 2 GM in IV D5W 100 ML IV SCH (22:05)
[2020-08-27] VITALS (7 sets, daily range): BP systolic 107–145; BP diastolic 51–86
--- NOTE | 2020-08-27 01:44 | NUR ---
RN NOTE NOTES, NOTED PATIENT WITH SEIZURE EPISODE, AND DESATURATION, INCREASED O2 AT 10L VIA SIMPLE MASK, AFTER THAT O2 ABOVE 94%, INFORMED SKYLAR PARTICIPANT ADMINISTRATOR AND REPLIED WITH ORDER FOR ATIVAN 2MG IVP X1 FOR SEIZURE, NOTED, WILL ADMINISTER ORDERED, PATIENT IN CONTINUOUS CLOSELY MONITORING.
[2020-08-27] MEDS ORDERED: LORAZEPAM INJ 2 MG/ML VIAL IV ONE (01:50)
--- NOTE | 2020-08-27 01:55 | NUR ---
MANAGER LEAN NOTES, PATIENT'S O2 FLUCTUATING TO LOW 80S IN SIMPLE MASK AT 10LPM AND PLACED PATIENT IN NRB AT 15LPM AT THIS TIME.
--- NOTE | 2020-08-27 02:10 | NUR ---
TOLL GATE KEEPER NOTES, PATIENT CONTINUE ON NRM AT 15LPM WITH O2 SAT LEVEL IN MID 90S AT THIS TIME, WILL CONTINUE TO MONITOR CLOSELY, NO SEIZURE ACTIVITY NOTED AT THIS TIME.
[2020-08-27] MEDS: ACETAMINOPHEN 325 MG TABLET PO PRN (04:52)
[2020-08-27] MEDS: PROPRANOLOL HCL 10 MG TABLET PO SCH ×3 (05:00→20:47)
--- NOTE | 2020-08-27 05:00 | NUR ---
LEATHER COVERER NOTES, HELD PROPRANOLOL MEDICATION DUE TO BP 93/45, WILL CONTINUE TO MONITOR.
--- NOTE | 2020-08-27 06:35 | NUR ---
SHOWROOM MANAGER CLOSING NOTE, PATIENT IN BED, ASLEEP, ON 12L OXYGEN VIA NRM SATURATION LEVEL 93% AT THIS TIME, REDUCED FROM 15L TO 12L, NO S/S OF SOB/ACUTE DISTRESS NOTED AT THIS TIME, SINUS RHYTHM IN TELE MONITOR WITH 1ST DEGREE AV BLOCK,HR 60-70S, INCREASED/DESATURATION TOO WHEN EPISODE OF SEIZURE ACTIVITY, ATIVAN GIVEN X1, ALSO WITH HIGH BODY TEMP NOTED AROUND 2000 LAST NIGHT AND 0500 THIS MORNING, TYLENOL GIVEN 2X, AFEBRILE AT THIS TIME, RIGHT WRIST 20GHR PATENT AND INTACT, PIV SAFETY PRECAUTIONS IN PLACED, BED LOCKED AND LOWEST POSITION, SIDE RAILS UP X2, CALL LIGHT WITHIN REACH, WILL ENDORSE CONTINUITY OF CARE TO ONCOMING NURSE.
[2020-08-27 07:14] LABS: BASOPHILS % (AUTO) 0.1 % (0.0-2.0); EOSINOPHILS % (AUTO) 0.1 % (0.0-6.0); HEMATOCRIT 37 % (33-45); HEMOGLOBIN 12.9 g/dL (11.5-14.8); LYMPHOCYTES # (AUTO) 0.2 /CMM (0.8-4.8); LYMPHOCYTES % (AUTO) 3.5 % (20.0-44.0); MEAN CORPUSCULAR HGB CONC 35 g/dl (31.0-36.0); MEAN CORPUSCULAR VOLUME 89 fL (82-100); MONOCYTES # (AUTO) 0.3 /CMM (0.1-1.30); MONOCYTES % (AUTO) 5.3 % (2.0-12.0); PLATELET COUNT (AUTO) 127 /CMM (150-450); RED BLOOD CELL COUNT(AUTO) 4.11 MIL/uL (4.0-5.2); WHITE BLOOD COUNT (AUTO) 6.6 K/uL (4.3-11.0)
--- NOTE | 2020-08-27 07:30 | NUR ---
ENTRY EXAMINER OPENING NOTE RECEIVED PATIENT RESTING IN BED. AWAKE, ALERT AND ORIENTED TO PERSON ONLY. NO SIGNS OR SYMPTOMS OF PAIN AT THIS MOMENT. IV ACCESS TO RIGHT WRIST #20G INTACT AND PATENT. O2 SAT 92% ON 10L NON REBREATHER MASK WITH NO SIGNS OR SYMPTOMS OF RESPIRATORY DISTRESS NOTED. ASPIRATION, SAFETY AND FALL PRECAUTIONS MAINTAINED. WILL CONTINUE TO MONITOR.
[2020-08-27 07:34] LABS: CREATININE 0.8 mg/dL (0.6-1.3); MAGNESIUM 2.3 mg/dL (1.8-2.4); PHOSPHORUS 2.4 mg/dL (2.5-4.9); POTASSIUM 3.3 mmol/L (3.5-5.1)
[2020-08-27] MEDS: DIVALPROEX SODIUM 250 MG TABLET.DR PO SCH ×3 (08:28→17:00)
[2020-08-27] MEDS: BENZTROPINE MESYLATE (1 MG) 1 MG TABLET PO SCH ×2 (08:28→17:00)
[2020-08-27] MEDS: risperiDONE 0.25 MG TABLET PO SCH ×2 (08:28→20:48)
[2020-08-27] MEDS: DEXAMETHASONE SOD PHOSPHATE 10 MG/ML VIAL IV SCH (08:28)
[2020-08-27] MEDS: APIXABAN 5 MG TABLET PO SCH ×2 (08:38→20:47)
--- NOTE | 2020-08-27 09:28 | NUR ---
WOUND CARE CONSULT: REVIEWED CHART, NURSING DOCUMENTATION AND PHOTOS WHICH INDICATE INTACT DEEP TISSUE INJURIES TO RT HEEL AND SACRUM, PRESENT ON ADMISSION. RECOMMENDATIONS MADE FOR SKIN PROTECTION. DISCUSSED WITH NURSING STAFF. PT IS ON SARGENT ISOFLEX LOW AIRLOSS BED. MD IN AGREEMENT WITH PLAN OF CARE.
[2020-08-27] MEDS ORDERED: POTASSIUM CHLORIDE 20 MEQ TAB.PRT.SR PO ONE (10:30)
[2020-08-27] MEDS: CEFEPIME 2 GM in IV D5W 100 ML IV SCH ×2 (10:43→20:46)
[2020-08-27] MEDS ORDERED: NEUTRA PHOS 1 POWD.PACKET PO ONE (11:30)
--- NOTE | 2020-08-27 12:00 | NUR ---
THEATRICAL VARIETY AGENT NOTE PATIENT NOTED WITH INCREASED CONGESTION - UNABLE TO COUGH UP MUCOUS. O2 SATS DECREASING TO 83%. PERFORMED ORAL CARE AND SUCTIONING WITH POSITIVE RESULT. PATIENT TOLERATED SUCTION WELL. O2 SATS INCREASED TO 93% WITH NON-LABORED BREATHING NOTED. ASPIRATION PRECAUTIONS MAINTAINED. WILL CONTINUE TO MONITOR.
[2020-08-27] MEDS: ENSURE ENLIVE 237 ML LIQUID (VANILLA) PO SCH ×3 (12:18→17:00)
[2020-08-27] MEDS: DOCUSATE SODIUM 100 MG CAPSULE PO SCH (17:46)
--- NOTE | 2020-08-27 17:46 | NUR ---
SQUIRREL WORKER NOTE PATIENT LETHARGIC AT THIS TIME. PATIENT IS RISK FOR ASPIRATION. HOLDING 1700 AND 1800 MEDICATION.
--- NOTE | 2020-08-27 18:04 | NUR ---
RN CLOSING NOTE PATIENT IS CURRENTLY SLEEPING IN BED. ALERT AND ORIENTED X 1. NO SIGNS OR SYMPTOMS OF PAIN NOTED. CONTINUES ON NON-REBREATHER MASK 15L WITH O2 SATS 92-95%. NO SIGNS OR SYMPTOMS OF RESPIRATORY DISTRESS NOTED. IV ACCESS TO RIGHT WRIST #20G INTACT AND PATENT. PATIENT RECEIVED HEMODIALYSIS TODAY WITH OUTPUT OF 1400CC. VS: BP 145/86 HR 109 RR 20 T 98.1 O2 SAT 99% ON 15L NON-REBREATHER MASK. CALL LIGHT WITHIN REACH. FREQUENT SAFETY CHECKS MADE. ASPIRATION, FALL AND SAFETY PRECAUTIONS MAINTAINED. WILL ENDORSE CONTINUITY OF CARE TO ONCOMING SHIFT.
--- NOTE | 2020-08-27 19:35 | NUR ---
RN opening notes Received Pt resting in bed comfortably. Pt is alert and orientedX1. Respiration on non-rebreather mask 15 L with O2 sat 92%. No SOB. No S/S of distress noted. VS is stable. IV site at R wrist# 20 is clean, intact and flushes well. Safety precautions is maintained. Bed at low position, brakes locked, side rails upX3 padded and call light is within reach. Will continue to monitor.
--- NOTE | 2020-08-27 20:08 | NUR ---
RN notes Informed and notified Dr. Gomez regarding Pt's temp 102.3 F. ordered for LFT test and tylenol 650 mg/supp/Q 6hr/PRN. Order carried out.
[2020-08-27] MEDS ORDERED: ACETAMINOPHEN 650 MG/SUPP.RECT RC PRN (20:30)
--- NOTE | 2020-08-27 20:46 | NUR ---
RN notes Pt's temp is 102.3 F. Administered tylenol 650 mg/ supp/prn as ordered for fever. Cooling measure is applied. MD is aware and informed. Will continue to monitor.
--- NOTE | 2020-08-27 20:48 | NUR ---
RN notes Held Pt's meds at 2100 because Pt looks lethargy. Risk for aspiration.
--- NOTE | 2020-08-27 21:00 | NUR ---
RN notes Held Pt's meds zocor because Pt looks lethargy and does not follow command. Risk for aspiration. Will continue to monitor.
[2020-08-27] MEDS: SIMVASTATIN 10 MG TABLET PO SCH (21:02)
--- NOTE | 2020-08-27 22:19 | NUR ---
RN notes Pt's temp is 98.8 F. Will continue to monitor
[2020-08-28 04:00] VITALS: BP 111/60
[2020-08-28 04:50] VITALS: BP 111/60
[2020-08-28] MEDS: PROPRANOLOL HCL 10 MG TABLET PO SCH ×3 (05:00→21:00)
--- NOTE | 2020-08-28 05:16 | NUR ---
RN notes Pt is lethargic. Held Pt meds at 0500. Risk for aspiration. VS is stable. Will continue to monitor.
--- NOTE | 2020-08-28 06:55 | NUR ---
RN closing notes Received Pt resting in bed comfortably. Pt is alert and orientedX1. Respiration on non-rebreather mask 15 L with O2 sat 97%. No SOB. No S/S of distress noted. VS is stable. IV site at R wrist# 20 is clean, intact and flushes well. Kept Pt clean, dry and comfortable. Wound care provided as ordered. Safety precautions is maintained. Bed at low position, brakes locked, side rails upX3 padded and call light is within reach. Will endorse to morning nurse for YESSICA. Addendum: 08/28/20 at 0750 by MARISOL SOSA RN Pt is resting in bed comfortably in bed.
--- NOTE | 2020-08-28 07:30 | NUR ---
TELE/RN OPENING NOTE Received patient resting in bed, A&O x 1, lethargic, right eye opens to tactile and verbal stimulation, left eye remains shut. No s/s of pain/discomfort at this time. Breathing even and non-labored on 15 L NRB mask, no SOB noted. No respiratory or cardiac distress noted. On tele monitor reading SR 99. IV access noted on R wrist #20, patent and intact, and flushing well. Bed locked to its lowest position, side rails x 2 up, seizure precautions maintained, bed alarm on. Will continue with current medical management. Addendum: 08/28/20 at 1415 by ADRY LIGHT RN CORRECTION: NOT ON TELE MONITOR
[2020-08-28 08:00] VITALS: BP 106/64
[2020-08-28 08:32] LABS: ALBUMIN 2.1 g/dL (3.4-5.0); BILIRUBIN,TOTAL 0.7 mg/dL (0.2-1.0); CREATININE 0.9 mg/dL (0.6-1.3); PHOSPHORUS 3.8 mg/dL (2.5-4.9); POTASSIUM 4.3 mmol/L (3.5-5.1); TOTAL PROTEIN, SERUM 6.8 g/dL (6.4-8.2)
[2020-08-28] MEDS: LEVOTHYROXINE SODIUM 100 MCG TABLET PO SCH (08:44)
[2020-08-28] MEDS: CEFEPIME 2 GM in IV D5W 100 ML IV SCH ×2 (08:44→21:24)
[2020-08-28] MEDS: risperiDONE 0.25 MG TABLET PO SCH ×2 (08:44→21:26)
[2020-08-28] MEDS: DIVALPROEX SODIUM 250 MG TABLET.DR PO SCH ×3 (08:44→16:09)
[2020-08-28] MEDS: BENZTROPINE MESYLATE (1 MG) 1 MG TABLET PO SCH ×2 (08:44→16:09)
[2020-08-28] MEDS: DEXAMETHASONE SOD PHOSPHATE 10 MG/ML VIAL IV SCH (08:44)
[2020-08-28] MEDS: APIXABAN 5 MG TABLET PO SCH ×2 (08:48→21:28)
[2020-08-28] MEDS: ENSURE ENLIVE 237 ML LIQUID (VANILLA) PO SCH ×3 (08:48→16:09)
--- NOTE | 2020-08-28 09:15 | NUR ---
TELE/RN NOTE Attempted to titrate patient to 10 L oxygen via face mask, but desaturates to 81%. Placed patient back on 15 L NRB mask, saturating well at 91-93%. No respiratory distress noted.
[2020-08-28 09:16] LABS: CALCIUM, SERUM 8.2 mg/dL (8.5-10.1)
--- NOTE | 2020-08-28 14:12 | NUR ---
TELE/RN NOTE Titrated patient to 10 L oxygen via face mask, tolerating well, appears well and comfortable. No respiratory noted, currently saturating at 93-94%. Breathing even and non-labored on rest period. Addendum: 08/28/20 at 1845 by ADRY LIGHT RN PER DR. KHAN'S ORDERS
[2020-08-28 16:00] VITALS: BP_SYST 109; BP_SYST 115; BP_DIAS 58; BP_DIAS 79
[2020-08-28] MEDS: DOCUSATE SODIUM 100 MG CAPSULE PO SCH (17:11)
--- NOTE | 2020-08-28 18:45 | NUR ---
MS/RN CLOSING NOTE Patient resting in bed, A&O x 1, moans to verbal and tactile stimulation. All needs met and attended to. No s/s of any pain/discomfort at this time. Breathing even and non-labored on 10L oxygen via FM, no SOB noted. No cardiac distress noted. IV access noted on R wrist #20, patent and intact, and flushing well. Fall precautions maintained. Will endorse to 3rd mate nurse.
[2020-08-28 20:00] VITALS: BP 96/45
--- NOTE | 2020-08-28 20:00 | NUR ---
RN NOTES RECEIVED PT. SLEEPING AND AROUSABLE TO PAINFUL STIMULI, LETHARGIC, PER DAYSHIFT NURSE THAT'S THE BASELINE OF THE PATIENT AND MD IS AWARE, ON FACE MASK 10L, SAT 94%, NO IN DISTRESS, NO PAIN NOTED, SIDERAILSUPX2, CONTINUE TO MONITOR
[2020-08-28] MEDS: SIMVASTATIN 10 MG TABLET PO SCH (21:24)
--- NOTE | 2020-08-29 01:00 | NUR ---
RN NOTES PT. DESATTING ON 10L , PT O2 SAT IS 88%, PUT BACK PT. ON NON-REBREATHER, CALL ICU CHARGE NURSE TO ASSESS THE PATIENT
--- NOTE | 2020-08-29 01:05 | NUR ---
RN NOTES ICU CHARGE NURSE CAME WELL THE RT'S AND ASSESS THE PATIENT.. RT PUT BACK PT ON FACE MASK AND WAITED UNTIL PT O2 SAT WENT UP T 92%, IV ON THE LEFT WRIST GOT INFILTRATED, ICU CHARGE NURSE INSERTED ON THE LEFT WRIST # 22, WILL CONTINUE TO MONITOR THE PT.
[2020-08-29] MEDS: PROPRANOLOL HCL 10 MG TABLET PO SCH ×3 (05:00→20:50)
--- NOTE | 2020-08-29 06:50 | NUR ---
RN NOTES SLEEPING , AROUSABLE TO PAINFUL STIMULI, STILL TITRATING HER O2 SAT ON FACE MASK, MORNING CARE RENDERED, DARIENYPX2, P. NEEDS ATTENDED
--- NOTE | 2020-08-29 07:37 | NUR ---
MS RN NOTE PATIENT IN BED RESTING COMFORTABLY. PATIENT IN NO ACUTE DISTRESS. NO SOB NOTED. PATIENT BREATHING IS EVEN AND UNLABORED. PATIENT HOB IS ELEVATED. SAFETY PRECAUTIONS IN PLACE. PATIENT BED IS LOCKED AND IN LOWEST POSITION. CALL LIGHT WITHIN REACH. WILL CONTINUE TO MONITOR.
[2020-08-29 08:00] VITALS: BP 115/58
--- NOTE | 2020-08-29 08:30 | NUR ---
MS RN NOTE PATIENT TEMPERATURE 99.6F, IMPLEMENTED COOLING MEASURES.
[2020-08-29] MEDS: risperiDONE 0.25 MG TABLET PO SCH ×2 (09:04→20:48)
[2020-08-29] MEDS: DIVALPROEX SODIUM 250 MG TABLET.DR PO SCH ×3 (09:04→17:31)
[2020-08-29] MEDS: APIXABAN 5 MG TABLET PO SCH ×2 (09:05→20:52)
[2020-08-29] MEDS: ENSURE ENLIVE 237 ML LIQUID (VANILLA) PO SCH ×3 (09:05→17:28)
[2020-08-29] MEDS: DEXAMETHASONE SOD PHOSPHATE 10 MG/ML VIAL IV SCH (09:06)
[2020-08-29] MEDS: LEVOTHYROXINE SODIUM 100 MCG TABLET PO SCH (09:06)
[2020-08-29] MEDS: BENZTROPINE MESYLATE (1 MG) 1 MG TABLET PO SCH ×2 (09:06→17:31)
[2020-08-29] MEDS: CEFEPIME 2 GM in IV D5W 100 ML IV SCH ×2 (09:07→20:48)
--- NOTE | 2020-08-29 10:00 | NUR ---
MS RN NOTE DR. KHAN SEEN AND EVALUATED PATIENT. PER DR. KHAN PLACE PATIENT ON 6L NC AND SEE HOW SHE TOLERATES. PLACED PATIENT ON 6L NC AND PATIENT WAS UNABLE TO TOLERATE SATURATING MID 80'S SPO2. PLACED BACK ON SIMPLE MASK ON 8L SATURATING 94% SPO2.
[2020-08-29 16:00] VITALS: BP 126/94
[2020-08-29] MEDS: DOCUSATE SODIUM 100 MG CAPSULE PO SCH (17:31)
--- NOTE | 2020-08-29 18:38 | NUR ---
MS RN NOTE PATIENT IN BED RESTING COMFORTABLY. PATIENT IN NO ACUTE DISTRESS. NO SOB NOTED. PATIENT BREATHING IS EVEN AND UNLABORED. PATIENT HOB IS ELEVATED. PATIENT KEPT CLEAN, DRY, AND COMFORTABLE THROUGHOUT SHIFT. PATIENT ON SIMPLE MASK 8L SATURATING >94% SPO2. SAFETY PRECAUTIONS IN PLACE. PATIENT BED IS LOCKED AND IN LOWEST POSITION. CALL LIGHT WITHIN REACH. WILL ENDORSE CARE TO PM SHIFT FOR YESSICA.
--- NOTE | 2020-08-29 19:35 | NUR ---
MS RN NOTES PATIENT IN BED, RESTING, ABLE TO AROUSED WITH PAINFUL STIMULI. BREATHING EVEN AND UNLABORED ON 8L SIMPLE MASK. SHOWS NO SIGNS OF ACUTE RESPIRATORY DISTRESS. NO ACUTE PAIN. IV ON L WRIST 22G CLEAN DRY AND INTACT. FLUSHING WELL. SHOWS NO SIGNS OF INFILTRATION, NO REDNESS. SAFETY PRECAUTIONS IN PLACE. BED IN LOWEST POSITION, LOCKED, AND CALL LIGHT KEPT WITHIN REACH. WILL CONTINUE TO MONITOR.
[2020-08-29 20:00] VITALS: BP 98/64
[2020-08-29] MEDS: SIMVASTATIN 10 MG TABLET PO SCH (21:02)
--- NOTE | 2020-08-30 01:04 | NUR ---
MS RN NOTES TITRATED PT TO NC 6L, STATING AT 94%. WILL CONTINUE TO MONITOR.
[2020-08-30] MEDS: PROPRANOLOL HCL 10 MG TABLET PO SCH ×2 (05:00→12:14)
--- NOTE | 2020-08-30 06:08 | NUR ---
MS RN NOTES PATIENT BEGAN TO DESAT AT 0300. PUT ON NONREBREATHER 15L. SATTING 90-91%. AT 0600 PT BEGAN TO SAT AT 87-89%. PT SOUNDS CONGESTED. DOES NOT APPEAR IN DISTRESS. PAGED MD TO BE MADE AWARE. AWAITING CALL BACK
--- NOTE | 2020-08-30 06:15 | NUR ---
MS RN NOTES RECEIVED ORDERS FOR MD FOR ABG. WILL FOLLOW THRU.
--- NOTE | 2020-08-30 06:43 | NUR ---
MS RN NOTES PATIENT IN BED, RESTING, ABLE TO BE AROUSED WITH PAINFUL STIMULI. BREATHING EVEN AND UNLABORED ON 15L NONREBREATHER. SHOWS NO SIGNS OF ACUTE RESPIRATORY DISTRESS. NO ACUTE PAIN. IV ON L WRIST 22G CLEAN DRY AND INTACT. FLUSHING WELL. SHOWS NO SIGNS OF INFILTRATION, NO REDNESS. ALL DUE MEDICATIONS GIVEN. ALL NEEDS ATTENDED TO. SAFETY PRECAUTIONS IN PLACE. BED IN LOWEST POSITION, LOCKED, AND CALL LIGHT KEPT WITHIN REACH. WILL ENDORSE TO ONCOMING NURSE.
--- NOTE | 2020-08-30 07:31 | NUR ---
MS RN NOTES PATIENT RECEIVED IN BED RESTING COMFORTABLY, ALERT AND ORIENTED X 1, EASILY AWAKEN BY NAME AND LIGHT TOUCH. PATIENT ON NON-REBREATHER AT THIS TIME. PATIENT IV ACCESS INTACT AND PATENT, SKIN WARM AND DRY TO TOUCH. SAFETY PRECAUTIONS IMPLEMENTED WITH BED LOCKED, BILATERAL SIDE RAILS UP, BED ALARM ON, AND CALL LIGHT WITH EASY REACH. WILL CONTINUE TO MONITOR PATIENT.
[2020-08-30 07:48] LABS: ABG BASE EXCESS 4.3 mmol/L; ABG OXYGEN SATURATION 88.7 % (92.0-98.5); ABG PCO2 30.6 mmHg (35.0-45.0); ABG PH 7.549 (7.350-7.450); ABG PO2 52.9 mmHg (75.0-100.0); AaDO2 629.5 mmHg; COHb 0.4 % (0.5-1.5); MetHb 0.3 % (0.0-1.5); O2Hb 88.1 % (94.0-97.0); SITE, ABG Left Radial; VENT MODE, BG NRB 100%
[2020-08-30 08:00] VITALS: BP 106/67
[2020-08-30 08:26] VITALS: BP 106/67
[2020-08-30] MEDS: DEXAMETHASONE SOD PHOSPHATE 10 MG/ML VIAL IV SCH (08:42)
[2020-08-30] MEDS: risperiDONE 0.25 MG TABLET PO SCH (08:42)
[2020-08-30] MEDS: BENZTROPINE MESYLATE (1 MG) 1 MG TABLET PO SCH ×2 (08:42→17:45)
[2020-08-30] MEDS: DIVALPROEX SODIUM 250 MG TABLET.DR PO SCH ×3 (08:42→17:45)
[2020-08-30] MEDS: LEVOTHYROXINE SODIUM 100 MCG TABLET PO SCH (08:42)
[2020-08-30] MEDS: CEFEPIME 2 GM in IV D5W 100 ML IV SCH ×2 (08:46→21:46)
[2020-08-30] MEDS: ENSURE ENLIVE 237 ML LIQUID (VANILLA) PO SCH ×3 (08:46→17:00)
[2020-08-30] MEDS: APIXABAN 5 MG TABLET PO SCH (08:46)
[2020-08-30] MEDS ORDERED: ASCORBIC ACID 500 MG TABLET PO SCH (09:00)
[2020-08-30] MEDS ORDERED: ZINC SULFATE 220 MG CAPSULE PO SCH (09:00)
[2020-08-30 15:55] VITALS: BP 98/68
[2020-08-30 16:00] VITALS: BP 98/68
[2020-08-30] MEDS: DOCUSATE SODIUM 100 MG CAPSULE PO SCH (17:45)
[2020-08-30] MEDS ORDERED: MAG HYDROX/AL HYDROX/SIMETH 30 ML UDC GT PRN (18:26)
[2020-08-30] MEDS ORDERED: MAGNESIUM HYDROXIDE 30 ML UDC GT PRN (18:26)
[2020-08-30] MEDS ORDERED: HYDROCODONE/APAP 5/325MG TABLET GT PRN (18:27)
[2020-08-30] MEDS ORDERED: PHARMACY TO CHANGE PO MEDS TO GT/NG XX PRN (18:30)
[2020-08-30] MEDS ORDERED: ACETAMINOPHEN 650 MG/20.3 ML UDC PO PRN (18:30)
[2020-08-30] MEDS ORDERED: ACETAMINOPHEN 650 MG/20.3 ML UDC GT PRN (18:30)
--- NOTE | 2020-08-30 18:53 | NUR ---
MS RN NOTES PATIENT IN BED RESTING COMFORTABLY, ALERT AND ORIENTED X 1, EASILY AWAKEN BY NAME AND LIGHT TOUCH. PATIENT ON NON-REBREATHER AT THIS TIME WITH HIGH FLOW NASAL CANNULA AT 60 LITER. NASOGASTRIC TUBE INTACT AND PATENT, CHEST XRAY DONE AND AUSCULTATED. PATIENT IV ACCESS INTACT AND PATENT, SKIN KEPT CLEAN, WARM AND DRY TO TOUCH. MET ALL OF PATIENT'S NEEDS. SAFETY PRECAUTIONS IMPLEMENTED WITH BED LOCKED, BILATERAL SIDE RAILS UP, BED ALARM ON, AND CALL LIGHT WITH EASY REACH. WILL ENDORSE PLAN OF CARE TO UPCOMING RN.
--- NOTE | 2020-08-30 19:25 | NUR ---
RN OPENING NOTES: RECEIVED PT A/OX1 IN BED RESTING/SLEEPING COMFORTABLY. PATIENT IN NO S/SX OF ACUTE DISTRESS AT THIS TIME. NO SOB NOTED. PATIENT'S BREATHING IS EVEN AND UNLABORED. PATIENT IS ON 100% HIGHFLOW AND 100% IN NRB MASK; TOLERATING WELL. SATING @93% AT THE TIME OF RECEIVED. PATIENT ON TELE MONITORING READING SINUS RHYTHM HR IS @61 AT THE TIME OF RECEIVED. NOTED NGT IN THE R NARE. NOTED TO BE DISLODGED AND NOT IN PLACE PER AUSCULTATION. LEASING CONSULTANT MADE AWARE. WILL ATTEMPT TO REINSERT.PATIENT ON NPO EXCEPT MEDS. NOTED IV SITE ON L WRIST # 22 ; PATENT, INTACT AND FLUSHING WELL; NO S/S OF INFECTION OR INFILTRATION. ALSO HAS ANOTHER IV ACCESS ON THE R WRIST # 20 NOTED TO BE NON PATENT AND DISLODGED. WILL REMOVED ACCESS AND WILL REINSERT NEEDED. SAFETY MEASURES HAVE BEEN PROVIDED AND IMPLEMENTED. PATIENT BED ALARM IS ON. HEAD OF BED ELEVATED. BED IS LOCKED, IN LOWEST POSITION AND SIDE RAILS UP. CALL LIGHT WITHIN REACH OF THE PATIENT. APPLICABLE ISOLATION PRECAUTIONS IN PLACE. WILL CONTINUE TO MONITOR AND REASSESS FOR ANY CHANGES AND WILL CARRY OUT ANY ONGOING AND ACTIVE MD ORDER. Addendum: 08/30/20 at 2359 by MONTY CROCKETT RN PLEASE REFER TO THE BELOW FOR THE CORRECT NOTES RECEIVED PT A/OX1 IN BED RESTING/SLEEPING COMFORTABLY. PATIENT IN NO S/SX OF ACUTE DISTRESS AT THIS TIME. NO SOB NOTED. PATIENT'S BREATHING IS EVEN AND UNLABORED. PATIENT IS ON 100% HIGHFLOW AND 100% IN NRB MASK; TOLERATING WELL. SATING @93% AT THE TIME OF RECEIVED. PATIENT ON TELE MONITORING READING SINUS RHYTHM HR IS @61 AT THE TIME OF RECEIVED. NOTED NGT IN THE R NARE. NOTED TO BE DISLODGED AND NOT IN PLACE PER AUSCULTATION. LEASING CONSULTANT MADE AWARE. WILL ATTEMPT TO REINSERT.PATIENT ON NPO EXCEPT MEDS. NOTED IV SITE ON R WRIST # 20 ; PATENT, INTACT AND FLUSHING WELL; NO S/S OF INFECTION OR INFILTRATION. ALSO HAS ANOTHER IV ACCESS ON THE L WRIST # 22 NOTED TO BE NON PATENT AND DISLODGED. WILL REMOVED ACCESS AND WILL REINSERT NEEDED. SAFETY MEASURES HAVE BEEN PROVIDED AND IMPLEMENTED. PATIENT BED ALARM IS ON. HEAD OF BED ELEVATED. BED IS LOCKED, IN LOWEST POSITION AND SIDE RAILS UP. CALL LIGHT WITHIN REACH OF THE PATIENT. APPLICABLE ISOLATION PRECAUTIONS IN PLACE. WILL CONTINUE TO MONITOR AND REASSESS FOR ANY CHANGES AND WILL CARRY OUT ANY ONGOING AND ACTIVE MD ORDER.
--- NOTE | 2020-08-30 19:40 | NUR ---
RN NOTES NOTED IV LINE L WRIST TO BE DISLODGED AND NON-PATENT. FACILITATED CHANGE AND REINSERTION OF IV LINE/ACCESS @ L HAND #22. CONCRETE STONE FINISHING SUPERVISOR MADE AWARE. WILL CONTINUE TO MONITOR AND ASSESS
[2020-08-30 20:00] VITALS: BP_SYST 132; BP_DIAS 70; BP_DIAS 79
--- NOTE | 2020-08-30 20:00 | NUR ---
RN NOTES NOTED THAT NGT ON THE R NARE WAS NOT INTACT AND DISLODGED. ATTEMPTED TO INSERT NEW NGT BUT WAS UNSUCCESSFUL, PATIENT NOTED NOT TOLERATE PROCEDURE AND DESATURATE BELOW 88% O2 SAT. POINTER MACHINE OPERATOR MADE AWARE. 2 MORE ATTEMPTS DONE WITH THE HELP OF ANOTHER RN ON SHIFT BUT WERE ALSO UNSUCCESSFUL. WILL INFORM NIK CH AND SECURE ANY ORDERS AND WILL CARRY OUT REQUESTED.
--- NOTE | 2020-08-30 20:30 | NUR ---
RN NOTES CALLED NIK CH AND ENDORSED NGT CONCERN/ ISSUE FOR PATIENT/RM 202. ADVISED HIM REGARDING ALL PERTINENT INFO ABOUT PATIENT AND CURRENT STATUS ; LOW O2 SAT AND LATEST ABG RESULT. NIK CH ORDERED TO HOLD ALL ORAL MEDS FOR NOW AND ALSO HOLD ELIQUIS FOR TONIGHT AND GIVE LOVENOX (PHARMACY TO DOSE) ONE TIME FOR TONIGHT. WILL CARRYOUT ORDERED. NURSE COLLEGE MADE AWARE.
[2020-08-30] MEDS: risperiDONE LIQUID 1 MG/ML ML GT SCH (21:00)
[2020-08-30] MEDS: APIXABAN 5 MG TABLET GT SCH (21:00)
[2020-08-30] MEDS: PROPRANOLOL HCL 10 MG TABLET GT SCH (21:00)
[2020-08-30] MEDS ORDERED: ENOXAPARIN SODIUM 80 MG/0.8 ML DISP.SYRIN SQ ONE (21:52)
[2020-08-30] MEDS ORDERED: ENOXAPARIN SODIUM 80 MG/0.8 ML DISP.SYRIN SQ SCH (21:52)
--- NOTE | 2020-08-30 21:52 | NUR ---
RN NOTES LOVENOX/ENOXAPARIN 80MG/0.8ML SQ ONCE (PHARMACY TO DOSE) GIVEN ORDERED BY NIK CH. WILL CONTINUE TO MONITOR AND ASSESS THROUGHOUT THE SHIFT.
[2020-08-30] MEDS: SIMVASTATIN 10 MG TABLET GT SCH (22:00)
--- NOTE | 2020-08-30 23:00 | NUR ---
RN NOTES PATIENT REMAINS IN NO ACUTE RESPIRATORY DISTRESS AT THIS TIME,CURRENTLY SATING @94% 02 SAT. NO CHANGES TO CONDITION/STATUS. WILL CONTINUE TO MONITOR AND REASSESS FOR ANY CHANGES THROUGHOUT THE SHIFT
--- NOTE | 2020-08-31 03:00 | NUR ---
RN NOTES NO CHANGES IN PATIENT CONDITION AT THIS TIME PATIENT VITALS STABLE, NO SIGNS OF ACUTE RESPIRATORY DISTRESS. PATIENT 02 SATURATION IS @92%. WILL CONTINUE TO MONITOR AND REASSESS FOR ANY CHANGES THROUGHOUT THE SHIFT.
[2020-08-31 04:00] VITALS: BP 115/71
[2020-08-31] MEDS: PROPRANOLOL HCL 10 MG TABLET GT SCH ×3 (04:47→20:53)
--- NOTE | 2020-08-31 06:56 | NUR ---
RN CLOSING NOTE: PATIENT REMAINS IN ROOM IN NO SIGNS OF RESPIRATORY DISTRESS STILL IN HIGH FLOW AND NRB MASK BOTH AT 100%; WITH O2 SAT AT THIS TIME @94%.SAFETY MEASURES IMPLEMENTED, BED IN LOWEST POSITION, LOCKED, SIDE RAILS UP, CALL LIGHT WITHIN REACH. ALL NEEDS AND ORDERS ADDRESSED DURING THE SHIFT. IV ACCESS MAINTAINED INTACT, SECURED AND FLUSHING WELL. ALL DUE MEDS GIVEN ORDERED & SCHEDULED ; PATIENT TOLERATED WELL. PATIENT KEPT CLEAN AND COMFORTABLE WITHIN THE SHIFT. ENDORSED TO AM RN TO F/U WITH AM MD REGARDING NGT INSERTION ISSUES TO GET APPROPRIATE PLAN AND ORDERS NEEDED. PATIENT ENDORSED TO INCOMING SHIFT RN WITH STABLE VITAL SIGN AND FOR CONTINUITY OF CARE.
[2020-08-31] MEDS: LEVOTHYROXINE SODIUM 100 MCG TABLET GT SCH (07:30)
--- NOTE | 2020-08-31 07:45 | NUR ---
TELE/RN OPENING NOTES RECEIVED PATIENT ON BED, ALERT AND ORIENTED X1. PATIENT IS ON HIGH FLOW OXYGEN SATURATION 92%. PATIENT IN NO APPARENT RESPIRATORY DISTRESS NOTED. NO SIGN AND SYMPTOM OF PAIN NOTED AT THIS TIME. TELE MONITOR READING SINUS TACHY 115 BPM. WILL CONTINUE TO MONITOR. Addendum: 08/31/20 at 0750 by LETICIA CRUM RN ERROR
--- NOTE | 2020-08-31 07:50 | NUR ---
MS/RN OPENING NOTES RECEIVED PATIENT ON BED, ALERT AND ORIENTED X1. PATIENT IS ON HIGH FLOW OXYGEN SATURATION 92%. PATIENT IN NO APPARENT RESPIRATORY DISTRESS NOTED. NO SIGN AND SYMPTOM OF PAIN NOTED AT THIS TIME. WILL CONTINUE TO MONITOR.
[2020-08-31 08:00] VITALS: BP 118/65
[2020-08-31] MEDS: BENZTROPINE MESYLATE (1 MG) 1 MG TABLET GT SCH ×2 (08:32→16:43)
[2020-08-31] MEDS: APIXABAN 5 MG TABLET GT SCH ×2 (08:32→20:54)
[2020-08-31] MEDS: VALPROIC ACID 250 MG/5 ML UDC GT SCH ×3 (08:32→16:43)
[2020-08-31] MEDS: ASCORBIC ACID 500 MG TABLET GT SCH (08:33)
[2020-08-31] MEDS: risperiDONE LIQUID 1 MG/ML ML GT SCH ×2 (08:33→20:53)
[2020-08-31] MEDS: ZINC SULFATE 220 MG CAPSULE GT SCH (08:34)
[2020-08-31] MEDS: ENSURE ENLIVE 237 ML LIQUID (VANILLA) PO SCH ×3 (08:34→16:47)
[2020-08-31] MEDS: DEXAMETHASONE SOD PHOSPHATE 10 MG/ML VIAL IV SCH (08:57)
--- NOTE | 2020-08-31 09:43 | NUR ---
MS/RN NOTES DR. CHAVEZ ORDER DNR. NOTED AND CARRIED OUT
[2020-08-31 12:00] VITALS: BP 118/65
[2020-08-31 13:28] LABS: HEMATOCRIT 38 % (33-45); HEMOGLOBIN 12.7 g/dL (11.5-14.8); LYMPHOCYTES # (AUTO) 0.2 /CMM (0.8-4.8); LYMPHOCYTES % (AUTO) 2.2 % (20.0-44.0); MEAN CORPUSCULAR HGB CONC 33 g/dl (31.0-36.0); MEAN CORPUSCULAR VOLUME 90 fL (82-100); MONOCYTES # (AUTO) 0.7 /CMM (0.1-1.30); MONOCYTES % (AUTO) 5.9 % (2.0-12.0); NEUTROPHILS # (AUTO) 10.2 /CMM (1.8-8.9); NEUTROPHILS % (AUTO) 91.9 % (43.0-81.0); PLATELET COUNT (AUTO) 203 /CMM (150-450); RED BLOOD CELL COUNT(AUTO) 4.21 MIL/uL (4.0-5.2); WHITE BLOOD COUNT (AUTO) 11.2 K/uL (4.3-11.0)
[2020-08-31] MEDS ORDERED: MEROPENEM 1 G in IV NS 0.9% 100 ML IV SCH (14:00)
[2020-08-31 15:03] LABS: LYMPHOCYTES % (MANUAL) 4 % (16-48); MONOCYTES % (MANUAL) 6 % (0-11.0); NEUTROPHILS % (MANUAL) 90 (42-76)
[2020-08-31] MEDS: MEROPENEM 1 G in IV NS 0.9% 100 ML IV SCH (15:33)
[2020-08-31] MEDS ORDERED: VANCOMYCIN 1.25 GM in IV D5W 250 ML IV ONE (16:00)
[2020-08-31 16:05] VITALS: BP 134/78
--- NOTE | 2020-08-31 16:39 | NUR ---
MS/RN REED NASOGASTRIC TUBE WAS INSERTED. STAT CHEST XRAY FOR NASOGASTRIC TUBE PLACEMENT WAS ORDER. RESULT WAS IN AND READY TO USE. MD IS AWARE. WILL CONTINUE TO MONITOR.
[2020-08-31] MEDS: DOCUSATE SODIUM LIQ 100 MG/10 ML UDC GT SCH (17:11)
--- NOTE | 2020-08-31 18:28 | NUR ---
TELE/RN NOTES PATIENT TRANSFER TO [facility]. GIVE REPORT TO JAGDEEP BARRON PATIENT IN NO APPARENT RESPIRATORY DISTRESS NOTED. NO COMPLAINED OF PAIN. TELE MONITOR READING AFIB 106 BP.
--- NOTE | 2020-08-31 19:06 | NUR ---
MS/RN CLOSING NOTES PATIENT IS ON BED. ALERT AND ORIENTED X1, OPEN EYES. PATIENT IS ON HIGH FLOW OXYGEN SATURATION 95%. PATIENT IN NO APPARENT RESPIRATORY DISTRESS NOTED. NO SIGN AND SYMPTOM OF PAIN NOTED AT THIS TIME. SEEN EXAMINED BY MD WITH ORDERS MADE AND CARRIED. ALL DUE MEDICATIONS WAS GIVE. IV ACCESS AT RIGHT HAND # 22 G PATENT AND INTACT. SAFETY PRECAUTIONS WAS IN PLACED. BED IN LOWEST POSITION AND LOCKED. ASSISTANT PASTRY CHEF RAIL UP AND LOCKED X2. CALL LIGHT LIGHT WITHIN REACH. WILL ENDORSED TO BAND PRESSER FOR YESSICA.
--- NOTE | 2020-08-31 19:30 | NUR ---
RN opening notes Received Pt from morning nurse. Pt is resting in bed comfortably. Pt is alert and orientedX1. Respiration on non rebreather 15 L and on high flow 60% fi02 with O2 sat is 94%. N-tube on L nares is intact and patent. IV site at R hand # 22 is clean, intact and flushes well. Safety precaution is maintained. Bed at low position, brakes locked, side rails upX3 padded and call light is within reach. Will continue to monitor. Addendum: 08/31/20 at 2003 by MARISOL SOSA RN No SOB. No S/S of distress noted.
[2020-08-31 20:00] VITALS: BP 129/46
[2020-08-31] MEDS: SIMVASTATIN 10 MG TABLET GT SCH (21:02)
--- NOTE | 2020-08-31 22:50 | NUR ---
RN notes Pt begin to desat at 2200. Pt is on high flow 60% fio2 100% and non rebreather 15 LPM. No S/S of distress noted. Suctioned Pt orally. Repositioned Pt. Called RT Gladys. Pt's O2 sat is 85-89%. No S/S of distress noted. MD is informed and aware. MD instructed to call Pulmonology if Pt in respiratory distress. Order carried out. Will continue to monitor.
--- NOTE | 2020-08-31 22:52 | NUR ---
RN notes RT at the bedside.
--- NOTE | 2020-08-31 23:43 | NUR ---
RN notes Pt's O2 sat is 91 %.
--- NOTE | 2020-09-01 01:11 | NUR ---
RN notes Pt's O2 sat is 85% on non rebreather 15 LPM and high flow 60% fio2 100%. No S/S of distress noted. Pt is able to open eyes, responded and arousable. MD is aware. Will continue to monitor
[2020-09-01] MEDS: MEROPENEM 1 G in IV NS 0.9% 100 ML IV SCH ×2 (02:01→14:29)
[2020-09-01 04:00] VITALS: BP 116/62
--- NOTE | 2020-09-01 04:18 | NUR ---
RN notes Pt's O2 sat is 89%.
--- NOTE | 2020-09-01 04:30 | NUR ---
RN notes Pt's O2 sat is 91%. No SOB. No S/S of distress noted. Will continue to monitor.
[2020-09-01] MEDS: PROPRANOLOL HCL 10 MG TABLET GT SCH ×3 (04:44→20:34)
[2020-09-01] MEDS: VANCOMYCIN 1 GM in IV D5W 250ml IV SCH ×2 (05:44→18:33)
--- NOTE | 2020-09-01 07:00 | NUR ---
RN closing notes Pt is resting in bed comfortably. Pt is alert and orientedX1. Respiration on non rebreather 15 L and on high flow 60% fi02 with O2 sat is 85-90%. No SOB. No S/S of distress noted. VS is stable. Afebrile. Routine meds were given as ordered. N-tube on L nares is intact and patent. IV site at R hand # 22 is clean, intact and flushes well. Wound care provided as ordered. Kept Pt clean, dry and comfortable. Safety precaution is maintained. Bed at low position, brakes locked, side rails upX3 padded and call light is within reach. Will endorse to morning nurse for YESSICA.
--- NOTE | 2020-09-01 07:35 | NUR ---
MS RN opening notes Bedside endorsement done. Patient is in bed resting, opens eyes to tactile sensation. Alert and oriented X1. IV line on R hand #22 is intact and patent. Breathing is even, on non rebreather mask at 15 L and on high flow at 60L and 60% fi02; endorsed by previous shift RN that patient has episodes of desaturation, currently in the mid- to low-80's. RT Carter doing rounds and seen patient at bedside and made aware of current status; will do abg and inform Dr. Davidson as applicable. NGT on L nare is in place. Safety precautions in place: bed locked and on lowest position, side rails up X3 and padded, call light within reach. Will continue to monitor.
[2020-09-01 07:37] LABS: BASOPHILS % (AUTO) 0.2 % (0.0-2.0); HEMATOCRIT 39 % (33-45); HEMOGLOBIN 13.1 g/dL (11.5-14.8); LYMPHOCYTES # (AUTO) 0.3 /CMM (0.8-4.8); LYMPHOCYTES % (AUTO) 2.5 % (20.0-44.0); MEAN CORPUSCULAR HGB CONC 33 g/dl (31.0-36.0); MEAN CORPUSCULAR VOLUME 92 fL (82-100); MONOCYTES # (AUTO) 0.5 /CMM (0.1-1.30); MONOCYTES % (AUTO) 4.2 % (2.0-12.0); NEUTROPHILS % (AUTO) 93.1 % (43.0-81.0); PLATELET COUNT (AUTO) 221 /CMM (150-450); RED BLOOD CELL COUNT(AUTO) 4.28 MIL/uL (4.0-5.2); WHITE BLOOD COUNT (AUTO) 11.8 K/uL (4.3-11.0)
[2020-09-01 08:00] VITALS: BP 108/59
[2020-09-01 08:10] LABS: CALCIUM, SERUM 8.9 mg/dL (8.5-10.1); CREATININE 0.8 mg/dL (0.6-1.3); MAGNESIUM 2.9 mg/dL (1.8-2.4); PHOSPHORUS 2.2 mg/dL (2.5-4.9); POTASSIUM 4.1 mmol/L (3.5-5.1)
[2020-09-01] MEDS: ASCORBIC ACID 500 MG TABLET GT SCH (08:21)
[2020-09-01] MEDS: BENZTROPINE MESYLATE (1 MG) 1 MG TABLET GT SCH ×2 (08:21→16:35)
[2020-09-01] MEDS: LEVOTHYROXINE SODIUM 100 MCG TABLET GT SCH (08:21)
[2020-09-01] MEDS: VALPROIC ACID 250 MG/5 ML UDC GT SCH ×3 (08:22→16:35)
[2020-09-01] MEDS: ZINC SULFATE 220 MG CAPSULE GT SCH (08:22)
[2020-09-01] MEDS: ENSURE ENLIVE 237 ML LIQUID (VANILLA) PO SCH (08:23)
[2020-09-01] MEDS: DEXAMETHASONE SOD PHOSPHATE 10 MG/ML VIAL IV SCH (08:23)
[2020-09-01] MEDS: risperiDONE LIQUID 1 MG/ML ML GT SCH ×2 (08:23→20:34)
[2020-09-01] MEDS: APIXABAN 5 MG TABLET GT SCH ×2 (08:24→20:36)
[2020-09-01 08:30] LABS: ABG BASE EXCESS 5.1 mmol/L; ABG OXYGEN SATURATION 84.4 % (92.0-98.5); ABG PCO2 32.9 mmHg (35.0-45.0); ABG PH 7.538 (7.350-7.450); ABG PO2 44.7 mmHg (75.0-100.0); AaDO2 635.4 mmHg; COHb 0.5 % (0.5-1.5); MetHb 0.3 % (0.0-1.5); O2Hb 83.7 % (94.0-97.0); SITE, ABG Right Radial; VENT MODE, BG HFNC 60L 100% +NRB
--- NOTE | 2020-09-01 08:50 | NUR ---
RN NOTES PATIENT WAS SEEN BY DR. KHAN AND ORDERED TO REPOSITION PATIENT ON RIGHT SIDE. O2 SAT CONTINUOUSLY CHECKED, CURRENTLY INCREASED TO MID-/HIGH-80'S. NO RESPIRATORY DISTRESS NOTED. DR. KHAN CURRENTLY ON THE PHONE W/ FAMILY AND DISCUSSING CODE STATUS.
[2020-09-01] MEDS: NEUTRA PHOS 1 POWD.PACKET PO SCH ×2 (09:30→16:35)
--- NOTE | 2020-09-01 10:03 | NUR ---
RN NOTES SPOKE W/ STEVE ([phone]), DTR OF PATIENT, AWARE OF PATIENT'S CURRENT STATUS AND INFORMED WELL BY DR. KHAN. PER DTR, PATIENT IS TO BE DNR/DNI STATUS. FACETIME CALL MADE W/ DTR AND PATIENT.
[2020-09-01 12:00] VITALS: BP 116/61
[2020-09-01 16:00] VITALS: BP 109/51
[2020-09-01] MEDS: GLUCERNA 1.2 1,000 ML BOTTLE NG PRN (17:01)
[2020-09-01] MEDS: DOCUSATE SODIUM LIQ 100 MG/10 ML UDC GT SCH (18:33)
--- NOTE | 2020-09-01 19:15 | NUR ---
MS RN closing notes Patient is in bed resting, opens eyes to tactile sensation. Alert and oriented X1. IV line on R hand #22 is intact and patent. Breathing is even, continues on non rebreather mask at 15 L and on high flow at 60L and 60% fi02; o2 sat in the mid-high 80's, md aware. NGT on L nare is in place, started on glucerna 1.2 at 20cc/hr, tolerated at this time. Safety precautions maintained: bed locked and on lowest position, side rails up X3 and padded, call light within reach. Will endorse to restaurant shift leader rn for rissa.
--- NOTE | 2020-09-01 19:30 | NUR ---
MS BARRON NOTES PATIENT IN BED A/O X1; OPEN EYES TO TOUCH; NONVERBAL. ON O2 15LPM VIA NONREBREATHER AND HIGHFLOW 60% FIOS 100%; TOLERATING SETTINGS WELL WITH NO SOB. ON NPO DIET; NGT TO L ALEXAE; PATENT AND INTACT; GLUCERNA 1.2 @ 20 ML/HR; TOLERATING FEEDINGS WELL. NO S/S OF PAIN OR DISTRESS NOTED AT THIS TIME. SAFETY MEASURES IN PLACE: BED AT LOWEST LOCKED POSITION X2; CALL LIGHT WITHIN EASY REACH, BED ALARMS ON. WILL CONTINUE TO MONITOR. Addendum: 09/02/20 at 0052 by MARCOS ALLEN RN MS BARRON OPENING NOTES
[2020-09-01 20:00] VITALS: BP 123/68
[2020-09-01] MEDS: SIMVASTATIN 10 MG TABLET GT SCH (22:18)
--- NOTE | 2020-09-01 23:07 | NUR ---
MS RN NOTES PATIENT ON O2 15LPM VIA NONREBREATHER AND 60LPM HIGHFLOW AT FIO2 100%; SATTING AT 78-82%. COUGHING AND CONGESTION NOTED; REPOSITIONED PATIENT. DID NGT DEEP SUCTION AND ORAL SUCTION, PT SATTING AT 80% AFTERWARDS. NOTIFIED RT, AND RT NGT DEEP SUCTION AND ORAL SUCTION. PT CONTINUE TO SAT AROUND 79-82%. PATIENT SKIN WARM TO TOUCH; TEMP 100.3F. APPLIED COOLING MEASURES. ADMINISTERED ACETAMINOPHEN 650MG. WILL CONTINUE TO MONITOR.
--- NOTE | 2020-09-02 00:51 | NUR ---
MS RN NOTES REASSESSED PATIENT; SKIN WARM TO TOUCH. TEMPERATURE 97.5F, COOLING MEASURES CONTINUED. PATIENT SHOES NO S/S OF DISTRESS OR PAIN. WILL CONTINUE TO MONITOR.
[2020-09-02 04:00] VITALS: BP 120/63
[2020-09-02] MEDS: MEROPENEM 1 G in IV NS 0.9% 100 ML IV SCH ×2 (04:29→14:16)
[2020-09-02] MEDS: PROPRANOLOL HCL 10 MG TABLET GT SCH ×3 (04:58→20:37)
[2020-09-02] MEDS: VANCOMYCIN 1 GM in IV D5W 250ml IV SCH (06:31)
[2020-09-02] MEDS: LEVOTHYROXINE SODIUM 100 MCG TABLET GT SCH (07:05)
[2020-09-02 07:08] LABS: CALCIUM, SERUM 8.8 mg/dL (8.5-10.1); CREATININE 0.8 mg/dL (0.6-1.3); POTASSIUM 4.3 mmol/L (3.5-5.1)
[2020-09-02 08:00] VITALS: BP 123/63
--- NOTE | 2020-09-02 08:20 | NUR ---
MS/RN OPENING NOTE THE PATIENT IS RECEIVED IN BED. PATIENT RESPONSES TO TACTILE STIMULI BY OPENING EYES. ALERT AND ORIENTED TO HER NAME. PATIENT IS ON NON-REBREATHER MASK AT 15L/MIN AND ON HIGH FLOW AT 60L. PATIENT NOTED WITH EPISODES OF LABORED BREATHING AND OXYGEN SATURATION AT 84%. PATIENT SEE BY DR CHAVEZ AND MADE AWARE OF PATIENT`S CONDITION. PER MD NO NEW ORDERS AT THIS TIME. BED LOW AND LOCKED. SIDE RAILS UP X3. CALL LIGHT WITHIN REACH. WILL CONTINUE TO MONITOR.
--- NOTE | 2020-09-02 08:39 | NUR ---
MS RN CLOSING NOTES PATIENT IN BED A/O X1; OPEN EYES TO TOUCH. ON O2 15LPM VIA NONREBREATHER AND HIGHFLOW 60% FIOS 100%; NOTED WITH DESATURATION AT 85%. ON NPO DIET; NGT TO L NARE; PATENT AND INTACT; GLUCERNA 1.2 @ 45 ML/HR; TOLERATING FEEDINGS WELL. REPOSITIONED PATIENT ACCORDINGLY. SAFETY MEASURES IN PLACE: BED AT LOWEST LOCKED POSITION X2; CALL LIGHT WITHIN EASY REACH, BED ALARMS ON. WILL CONTINUE TO MONITOR.
[2020-09-02] MEDS: VALPROIC ACID 250 MG/5 ML UDC GT SCH ×3 (09:27→17:27)
[2020-09-02] MEDS: ASCORBIC ACID 500 MG TABLET GT SCH (09:27)
[2020-09-02] MEDS: ZINC SULFATE 220 MG CAPSULE GT SCH (09:27)
[2020-09-02] MEDS: BENZTROPINE MESYLATE (1 MG) 1 MG TABLET GT SCH ×2 (09:28→17:27)
[2020-09-02] MEDS: DEXAMETHASONE SOD PHOSPHATE 10 MG/ML VIAL IV SCH (09:28)
[2020-09-02] MEDS: APIXABAN 5 MG TABLET GT SCH ×2 (09:30→20:36)
[2020-09-02] MEDS: risperiDONE LIQUID 1 MG/ML ML GT SCH ×2 (09:31→20:34)
[2020-09-02 16:00] VITALS: BP 118/71
[2020-09-02] MEDS: DOCUSATE SODIUM LIQ 100 MG/10 ML UDC GT SCH (17:27)
[2020-09-02] MEDS: GLUCERNA 1.2 1,000 ML BOTTLE NG PRN (17:49)
--- NOTE | 2020-09-02 18:38 | NUR ---
MS/RN CLOSING NOTE THE PATIENT RESPONSIVE TO TACTILE STIMULI BY OPENING EYES. THE PATIENT REMAINS OF NON-REBREATHER MASK AT 15L/MIN AND HIGH FLOW 60% WITH SATURATION AT 85%. NG TUBE ON LEFT NARES AND INTACT. FEEDING INFUSING PER ORDER. NO RESIDUAL NOTED. ABDOMEN SOFT AND NON-DISTENDED. RIGHT HAND G 22 PATENT AND SALINE LOCKED. SIDE RAILS UP X3. CALL LIGHT WITHIN REACH. WILL ENDORSE TO EARTHMOVING LABOURER.
--- NOTE | 2020-09-02 19:00 | NUR ---
RECEIVED IN BED EYESCLOSED REBREATHER ON 15 LITERS HFNC 60% SATS 84 - 86% GT FEDING INFUSING 20 ML HR TUBE FLUSHED W/O PROBLEM ASP PRECAUTIONS
[2020-09-02 20:00] VITALS: BP 114/59
[2020-09-02] MEDS: SIMVASTATIN 10 MG TABLET GT SCH (21:57)
[2020-09-03] MEDS: VANCOMYCIN 1 GM in IV D5W 250ml IV SCH ×2 (00:10→17:44)
[2020-09-03] MEDS: MEROPENEM 1 G in IV NS 0.9% 100 ML IV SCH ×2 (03:15→15:41)
[2020-09-03 04:00] VITALS: BP 133/96
--- NOTE | 2020-09-03 04:27 | NUR ---
CLOSING NOTES: ALERT ONLY TO SELF EYES CLOSED WILL RESPOND WHEN REPOSITION ASPIRATION PRECAUTION DT NGT FEEDING GLUCERNA AT 20 ML HOUR NO RESIDUAL AT THIS TIME DRESSING RIGHT FOOT CDI SWELLING RIGHT HAND DECREASING DT KEPT ELEVATED THIS 12 HURS
--- NOTE | 2020-09-03 04:31 | NUR ---
CLOSING NOTES ADDITION: REBREATHER 15 LITERS WITH HFNC 60% SATS 84 -86% SHE APPEARS COMFORTABLE AND IN NO DISTRESS WILL CONTINUE TO MONITOR
[2020-09-03] MEDS: PROPRANOLOL HCL 10 MG TABLET GT SCH ×3 (05:17→20:18)
[2020-09-03 06:22] LABS: CALCIUM, SERUM 8.6 mg/dL (8.5-10.1); CREATININE 0.8 mg/dL (0.6-1.3); POTASSIUM 4.2 mmol/L (3.5-5.1)
--- NOTE | 2020-09-03 07:40 | NUR ---
ms rn received a ndr/dni patient, on high flow meter, saturating 79-80% w/ o2 mask, non verbal, ngt w/ feeding at 20ml/hour, repositioned for comfort,all needs attended.
[2020-09-03 08:00] VITALS: BP 115/67
[2020-09-03] MEDS: BENZTROPINE MESYLATE (1 MG) 1 MG TABLET GT SCH ×2 (09:32→17:43)
[2020-09-03] MEDS: LEVOTHYROXINE SODIUM 100 MCG TABLET GT SCH (09:32)
[2020-09-03] MEDS: ZINC SULFATE 220 MG CAPSULE GT SCH (09:32)
[2020-09-03] MEDS: ASCORBIC ACID 500 MG TABLET GT SCH (09:32)
[2020-09-03] MEDS: VALPROIC ACID 250 MG/5 ML UDC GT SCH ×3 (09:32→17:43)
[2020-09-03] MEDS: APIXABAN 5 MG TABLET GT SCH ×2 (09:33→20:11)
--- NOTE | 2020-09-03 09:50 | NUR ---
ms rn was seen by dr. honeycutt,no order at this time,all needs attended.
[2020-09-03] MEDS: risperiDONE LIQUID 1 MG/ML ML GT SCH ×2 (11:28→20:15)
--- NOTE | 2020-09-03 11:40 | NUR ---
GRISELDA received call from the pt.s daughter, Laura Bhatt [phone] requesting some sort of letter that needs to be signed [facility] [phone]. Per Watson request, GRISELDA called [place] [phone] an asked to speak to Chucky. Chucky was not in the office, However, Janel stated she would leave Chucky VILLALOBOS contact info. GRISELDA will be available as needed. Addendum: 09/03/20 at 1439 by VIDYA VILLALOBOS GRISELDA received callback from Chucky at [facility] [phone] stating that he will have Laura sign a release Form authorizing SO to release the body to the [facility] when the pt. expires. Per Chucky Laura will have a procedure done 09/04/2020 and will not be able to speak/give consent so he wants to have that form ready. Noted. GRISELDA relayed information to pt.'s daughter, Laura [phone] who expressed understanding. GRISELDA will follow up as needed.
[2020-09-03 16:00] VITALS: BP 116/68
[2020-09-03] MEDS: DOCUSATE SODIUM LIQ 100 MG/10 ML UDC GT SCH (17:43)
--- NOTE | 2020-09-03 18:58 | NUR ---
ms rn on bed, no distress, patient is [id number]% at this time.
[2020-09-03 19:54] VITALS: BP 145/75
[2020-09-03 20:00] VITALS: BP 142/75
[2020-09-03] MEDS: SIMVASTATIN 10 MG TABLET GT SCH (21:54)
[2020-09-04] MEDS: MEROPENEM 1 G in IV NS 0.9% 100 ML IV SCH (02:42)
[2020-09-04] MEDS: GLUCERNA 1.2 1,000 ML BOTTLE NG PRN (03:00)
[2020-09-04] MEDS: PROPRANOLOL HCL 10 MG TABLET GT SCH (05:00)
--- NOTE | 2020-09-04 06:10 | NUR ---
PATIENT NONVERBAL WILL YELL OUT WHEN REPOSITIONED OR CLEANED ARMS AND LEGS STIFF SHE HAS HER ARMS CLOSE TO HER CHEST REBREATHER AND HFNC ON AND HER SATS RUN 83 - 89% INCONTINENT OF URINE SKIN INTACT EXCEPT THE DTI RIGHT HEEL SHE REMAINS A DNI/DNR FEEDING RESIDUALS O AND ASPIRATION PRECAUTIONS MAINTAINED DT THE [facility] FEEDING
[2020-09-04 06:21] LABS: BASOPHILS # (AUTO) 0.1 /CMM (0.0-0.2); BASOPHILS % (AUTO) 0.8 % (0.0-2.0); EOSINOPHILS % (AUTO) 0.2 % (0.0-6.0); HEMATOCRIT 38 % (33-45); HEMOGLOBIN 12.6 g/dL (11.5-14.8); LYMPHOCYTES # (AUTO) 0.5 /CMM (0.8-4.8); LYMPHOCYTES % (AUTO) 3.1 % (20.0-44.0); MEAN CORPUSCULAR HGB CONC 33 g/dl (31.0-36.0); MEAN CORPUSCULAR VOLUME 91 fL (82-100); MONOCYTES # (AUTO) 0.4 /CMM (0.1-1.30); MONOCYTES % (AUTO) 2.6 % (2.0-12.0); NEUTROPHILS # (AUTO) 15.3 /CMM (1.8-8.9); NEUTROPHILS % (AUTO) 93.3 % (43.0-81.0); PLATELET COUNT (AUTO) 225 /CMM (150-450); RED BLOOD CELL COUNT(AUTO) 4.19 MIL/uL (4.0-5.2); WHITE BLOOD COUNT (AUTO) 16.4 K/uL (4.3-11.0)
[2020-09-04 07:04] LABS: CALCIUM, SERUM 8.2 mg/dL (8.5-10.1); CREATININE 0.9 mg/dL (0.6-1.3); POTASSIUM 4.2 mmol/L (3.5-5.1)
--- NOTE | 2020-09-04 07:30 | NUR ---
PT RECEIVED RESTING COMFORTABLY IN BED. NO S/S OR C/O PAIN OR DISTRESS NOTED. SIDE RAILS UP X2, CALL LIGHT LEFT WITHIN REACH. WILL CONTINUE PLAN OF CARE.
[2020-09-04 08:00] VITALS: BP 92/54
[2020-09-04] MEDS: LEVOTHYROXINE SODIUM 100 MCG TABLET GT SCH (09:35)
[2020-09-04] MEDS: APIXABAN 5 MG TABLET GT SCH (09:36)
[2020-09-04] MEDS: ZINC SULFATE 220 MG CAPSULE GT SCH (09:36)
[2020-09-04] MEDS: BENZTROPINE MESYLATE (1 MG) 1 MG TABLET GT SCH (09:36)
[2020-09-04] MEDS: ASCORBIC ACID 500 MG TABLET GT SCH (09:36)
[2020-09-04] MEDS: risperiDONE LIQUID 1 MG/ML ML GT SCH (09:36)
[2020-09-04] MEDS: VALPROIC ACID 250 MG/5 ML UDC GT SCH (09:36)
[2020-09-04 16:00] VITALS: BP 117/51
[2020-09-04] MEDS: MORPHINE SULFATE PF DRIP 250 MG in IV D5W 240 ML IV PRN (16:43)
--- NOTE | 2020-09-04 18:58 | NUR ---
CHANGE OF SHIFT REPORT PT RESTING COMFORTABLY IN BED. NO S/S OR C/O PAIN OR DISTRESS NOTED. SIDE RAILS UP X2, CALL LIGHT LEFT WITHIN REACH. PT KEPT CLEAN, DRY, AND COMFORTABLE. NO SIGNIFICANT CHANGES SINCE PREVIOUS SHIFT. WILL GIVE REPORT TO ADRIENNE BARRON.
--- NOTE | 2020-09-04 19:30 | NUR ---
MS/RN OPENING NOTES RECEIVED PATIENT IN BED RESTING COMFORTABLE. PATIENT IS IN NO SIGNS OF DISTRESS AT THIS TIME. BREATHING IS EVEN. PATIENT BEING PROVIDED WITH COMFORTABLE MEASURES. PATIENT CURRENTLY HAS MORPHINE RUNNING AT 6ML/HR. SAFETY MEASURES ARE IN PLACE, BED IS LOCKED AND PLACED IN THE LOW POSITION, SIDE RAILS UP X 3. WILL CONTINUE TO MONITOR THROUGH OUT SHIFT.
[2020-09-04 20:00] VITALS: BP 92/43
--- NOTE | 2020-09-05 00:40 | NUR ---
MORPHINE MS/RN NOTES MORPHINE DID NOT SCAN WHEN BEING ADMINISTERED, IN COVID UNIT ROOM 202-1. 0040: NEW MORPHINE 250ML BAG HUNG EXPIRES AT 0845HRS PATIENT RECEIVED 46CC OF MORPHINE FROM PREVIOUS BAG WASTED 204 CC OF PREVIOUS MORPHINE BAG WITH RN PARAG PATIENT CURRENTLY RECEIVING MORPHINE 6ML/HR
[2020-09-05] MEDS ORDERED: KEY,NONCONTROL,TO KEEP IN PYXI 1 EA MC ONE (01:18)
--- NOTE | 2020-09-05 06:24 | NUR ---
PATIENT RECEIVED ON COMFORT MEASURES WHILE ON HFNC 60L 100% WITH NRB MASK. SUCTIONED VIA NT FOR MINIMAL, THICK, RED-TINGED SECRETIONS. CONTINUE TO MONITOR PATIENT. Addendum: 09/05/20 at 0626 by DANDRE LUNA RT Amended: Links added.
--- NOTE | 2020-09-05 07:00 | NUR ---
MS/RN CLOSING NOTES PATIENT IN BED RESTING COMFORTABLE. PATIENT IS IN NO SIGNS OF DISTRESS AT THIS TIME. BREATHING IS EVEN. PATIENT BEING PROVIDED WITH COMFORTABLE MEASURES. PATIENT CURRENTLY HAS MORPHINE RUNNING AT 6ML/HR. ALL PATIENT NEEDS HAVE BEEN MET DURING SHIFT. SAFETY MEASURES ARE IN PLACE, BED IS LOCKED AND PLACED IN THE LOW POSITION, SIDE RAILS UP X 3. WILL ENDORSE CARE TO DAY SHIFT NURSE.
[2020-09-05 08:00] VITALS: BP 126/70
[2020-09-05 08:10] LABS: CALCIUM, SERUM 8.2 mg/dL (8.5-10.1); CREATININE 0.9 mg/dL (0.6-1.3); POTASSIUM 4.4 mmol/L (3.5-5.1)
[2020-09-05] MEDS: MORPHINE SULFATE PF DRIP 250 MG in IV D5W 240 ML IV PRN (08:46)
--- NOTE | 2020-09-05 08:46 | NUR ---
Seen by Dr Mojica with orders to increase MOrphine drip to 10 mg/hr due to increase gurgling.Made comfortable.Oral care rendered and gently suctioned secretions as needed.
--- NOTE | 2020-09-05 08:51 | NUR ---
MOrphine drip order carried out and changed to 10 mg/hr.VTBI 201.9 ml remaining and 48.2 ml infused.Witnessed by co-RNLaurie.
--- NOTE | 2020-09-05 17:14 | NUR ---
PT IS NON RESPONSIVE.NO PULSE.BILATERAL EYES NON RESPONSIVE TO LIGHT.NO RESPIRATION NOTED.WITH CO-RN WITNESS. 1714 -NOTIFIED DR CHAVEZ AND MADE AWARE.PT AT 171. 1715 -NOTIFIED [facility] WITH CASE NO. [id number] SAYING PT DOESN'T QUALIFY.NOTIFIED RN NURSING [employer]PER[employer],FARA SANCHEZ. 1717-NOTIFIED ADMITTING OFFICE. 172 CALLED PT'S DAUGHTER,STEVE URENA 172 CALLED [facility] AND SPOKE TO KLEVER (ANSWERING SERVICE)SAYING THAT THEY ARE NOT ACCEPTING ANY [employer] TODAY AND THAT THE SUPERVISOR [employer] NEEDS TO CALL THE MORTUARY TOMORROW.NOTIFIED,RN SUPER[employer],FARA AND PT'S DAUGHTER,STEVE ABOUT IT.
--- NOTE | 2020-09-05 18:00 | NUR ---
POST MORTEM CARE DONE.REMOVED ALL TUBINGS AND IV LINES. PT HAS NO BELONGINGS. ENDORSED TO NIGHT NURSE CARE.
== END 2020-09-06 03:26 | disposition expired | DRG 871 ==
LOC: ER 17:54 → TRANSITION 19:50 → TELE2 08-23 06:30 → UNDODISIN 08-25 13:25 → MEDSG2 08-27 15:02
PROVIDERS: ADMIT Nurse Practitioner Acute Care; ATTEND Internal Medicine
DX: A41.89 Other specified sepsis (principal); U07.1 COVID-19; G93.41 Metabolic encephalopathy; J96.01 Acute respiratory failure with hypoxia; J12.82 Pneumonia due to coronavirus disease 2019; N17.0 Acute kidney failure with tubular necrosis; E44.0 Moderate protein-calorie malnutrition; F03.91 Unspecified dementia, unspecified severity, with behavioral disturbance; J98.11 Atelectasis; I48.92 Unspecified atrial flutter; E87.0 Hyperosmolality and hypernatremia; L51.1 Stevens-Johnson syndrome; R62.7 Adult failure to thrive; I25.10 Atherosclerotic heart disease of native coronary artery without angina pectoris; E78.5 Hyperlipidemia, unspecified; F31.9 Bipolar disorder, unspecified; Z51.5 Encounter for palliative care; Z66 Do not resuscitate; I48.91 Unspecified atrial fibrillation; E03.9 Hypothyroidism, unspecified; I10 Essential (primary) hypertension; R13.10 Dysphagia, unspecified; R73.9 Hyperglycemia, unspecified; E88.09 Other disorders of plasma-protein metabolism, not elsewhere classified; G40.909 Epilepsy, unspecified, not intractable, without status epilepticus; M62.81 Muscle weakness (generalized); Z68.26 Body mass index [BMI] 26.0-26.9, adult; F09 Unspecified mental disorder due to known physiological condition; T17.990A Other foreign object in respiratory tract, part unspecified in causing asphyxiation, initial encounter; X58.XXXA Exposure to other specified factors, initial encounter; Y93.9 Activity, unspecified; Y92.129 Unspecified place in nursing home as the place of occurrence of the external cause; N13.9 Obstructive and reflux uropathy, unspecified; F39 Unspecified mood [affective] disorder; F20.9 Schizophrenia, unspecified; I73.9 Peripheral vascular disease, unspecified
CPT/HCPCS: 31720; 36415; 36600; 71045-TC; 80048-TC; 80053-TC; 80061-TC; 80076-TC; 80202-TC; 82550-TC; 82728-TC; 82803-TC; 82962-TC; 83605-TC; 83615-TC; 83735-TC; 84100-TC; 84443-TC; 84484-TC; 85025-TC; 85378-TC; 85730-TC; 86140-TC; 87040-TC; 87081-TC; 87086-TC; 93308-TC; 93970-TC; 94760-TC; 94799-TC; A4217; A4624; G0378; J0282; J0692; J1100; J1650; J2060; J2185; J2270; J2274; J3370; J3490; J7030; J7040; J7050; J7060; Q9967; U0003